=== PATIENT | male | born 1965 | race Caucasian/White ===

== ENCOUNTER 2024-07-26 12:51 | Outpatient (OUT) | payer BC, SELFPAY ==
--- NOTE | 2024-07-26 12:54 | MR_ITS ---
The [place] [id number] Patient Name: EMILIANA GAVIRIA MRN: [id number] date: 1965 Sex: M Assigned Patient Location: MRI Current Patient Location: MRI Accession/Order Number: [id number] Exam Date: 07/26/2024 15:19 Report Date: 07/26/2024 15:24 At the request of: MICHELLE SORENSON MD Procedure: MR knee LT wo con MR knee LT wo con 07/26/2024 1:44 PM SIGNS AND SYMPTOMS: Internal Derangement Of Knee PROTOCOL: Multiplanar multisequence MR images of the left knee without IV contrast COMPARISON: None. FINDINGS: Fluid: There is a pktml-uv-qtegdaoo joint effusion. There is a Barbosa's cyst posteriorly which measures 3.3 x 2.5 x 1.9 cm in greatest dimension.. Medial compartment: Medial meniscus: There is a complex tear of the medial meniscus involving the posterior horn, body, and anterior horn. The medial meniscus is partly extruded from the joint space. There is no evidence of displaced fragment. Medial collateral ligament: Intact. Medial femoral condyle cartilage: There is full thickness chondromalacia. Osteophytosis. There is accompanying subchondral edema. Medial tibial plateau cartilage: There is full thickness chondromalacia. Osteophytosis. There is accompanying subchondral edema. Lateral compartment: Lateral meniscus: Intact. Lateral collateral ligament: Intact. Lateral femoral condyle cartilage: There is mild partial thickness chondromalacia.. Lateral tibial plateau cartilage: There is mild partial thickness chondromalacia. Posterolateral corner: Popliteus tendon: Intact. Popliteofibular ligament: Intact. Proximal tibiofibular joint: There is subcortical cystic change and mild edema on both sides of the joint space. Anterior compartment: Alignment: Normal. Quadriceps tendon: Intact. Patellar tendon: Intact. Retinaculum: Medial intact. Lateral intact. Patellar cartilage: There is full thickness chondromalacia with subcortical edema greatest along the lateral articular facet.. Osteophytosis. Trochlea: There is partial thickness chondromalacia greatest along the lateral articular facet. . Plica: None. Hoffa fat pad: Normal. Intercondylar compartment: Anterior cruciate ligament: Intact. Posterior cruciate ligament: Intact. Bones (other than subarticular marrow): Normal. Muscles: Normal. Vessels: Normal. Nerves: Normal. MR/MR knee LT wo con IMPRESSION: There is a gkcoi-se-rdkxmrsr joint effusion. There is a Barbosa's cyst posteriorly which measures 3.3 x 2.5 x 1.9 cm in greatest dimension. There is a complex tear of the medial meniscus involving the posterior horn, body, and anterior horn. The medial meniscus is partly extruded from the joint space. There is no evidence of displaced fragment. There is full thickness chondromalacia in the medial weightbearing compartment with subchondral edema. There is full thickness chondromalacia along the lateral articular facet of the patellofemoral joint. Partial thickness chondromalacia is noted in the lateral weightbearing. Impression dictated by: Pollo Franco M.D.07/26/2024 3:24 PM Dictation Location: [place] [address] Electronically authenticated by: [id number] Y Date: 07/26/2024 15:24
== END 2024-07-26 12:52 | disposition home or self-care (01) ==
LOC: MRI 12:51
PROVIDERS: PCP Family Medicine; Visit Provider Family Medicine
DX: M23.92 Unspecified internal derangement of left knee (principal); M25.462 Effusion, left knee; M71.22 Synovial cyst of popliteal space [Baker], left knee; S83.232A Complex tear of medial meniscus, current injury, left knee, initial encounter
CPT/HCPCS: 73721

== ENCOUNTER 2024-08-20 13:23 | Outpatient (OUT) | payer BC, SELFPAY ==
--- NOTE | 2024-08-20 13:24 | XR_ITS ---
The [address] [address] Patient Name: EMILIANA GAVIRIA MRN: [id number] date: 1965 Sex: M Assigned Patient Location: Current Patient Location: Accession/Order Number: [id number] Exam Date: 08/20/2024 14:51 Report Date: 08/20/2024 14:52 At the request of: LORAINE WORKMAN MD Procedure: XR knee LT 4V LEFT KNEE - 4 views CLINICAL HISTORY: Chronic left knee pain. COMPARISON: None FINDINGS: Moderate degenerative changes with medial weightbearing and patellofemoral joint space narrowing. No acute bony process is seen. XR/XR knee LT 4V IMPRESSION: MODERATE DEGENERATIVE CHANGES OF THE LEFT KNEE WITHOUT ACUTE BONY PROCESS. Impression dictated by: Pablo Buenrostro Jr. DAnnieOAnnie08/20/2024 2:52 PM Dictation Location: [place] [address] Electronically authenticated by: [id number] Y Date: 08/20/2024 14:52
== END 2024-08-20 13:24 | disposition home or self-care (01) ==
LOC: EC 13:24
PROVIDERS: PCP Family Medicine; Visit Provider Student in an Organized Health Care Education/Training Program
DX: M17.12 Unilateral primary osteoarthritis, left knee (principal)
CPT/HCPCS: 73564

== ENCOUNTER 2024-12-06 12:44 | Outpatient (OUT) | payer BC, SELFPAY ==
--- OUTSIDE RECORDS SUMMARY | 2015-03-14 09:15 | XMS_ITS | Continuity of Care Document ---
Author [facility] Address [address] [place] [address] [place] [address] Phone Care Team Providers Care Child Support Specialist Name Role Phone Unavailable Unavailable Unavailable Procedures Procedure Date OFFICE/OUTPATIENT VISIT, EST OFFICE/OUTPATIENT VISIT, EST OFFICE/OUTPATIENT VISIT, EST POSTOP FOLLOW-UP VISIT POSTOP FOLLOW-UP VISIT OFFICE/OUTPATIENT VISIT, EST Gastric Bypass LAP GASTRIC BYPASS/DON-EN-Y INITIAL INPATIENT CONSULT SUBSEQUENT HOSPITAL CARE OFFICE/OUTPATIENT VISIT, EST OFFICE/OUTPATIENT VISIT, [facility] Advance Directives Directive Yes / No Effective Date File Name No Information Encounters Encounter Description Practice Location Reason(s) For Visit Diagnoses Date Provider Providers Copied on Encounter OFFICE/OUTPAT IENT VISIT, [facility], [address] [place] [address], [id number], [place] tel:[phone] [facility] No Information No Information OFFICE/OUTPAT IENT VISIT, [facility], [address] [place] [address], [id number], [place] tel:[phone] [facility] No Information No Information OFFICE/OUTPAT IENT VISIT, [facility], [address] [place] [address], [id number], [place] tel:[phone] [facility] No Information No Information [facility], [address] [place] [address] [address], [place], [id number], [place] tel:[phone] [facility] No Information No Information [facility], [address] [place] [address] [address], [place], [id number], [place] tel:[phone] [facility] No Information No Information OFFICE/OUTPAT IENT VISIT, [facility], [address] [place] [address] [address], [place], [id number], [place] tel:[phone] [facility] No Information No Information [facility], [address] [place] [address] [address], [place], [id number], [place] tel:[phone] [facility] IP No Information No Information [facility], [address] [place] [address] [address], [place], [id number], [place] tel:[phone] [facility] IP No Information Juliet Howell. [facility] [address] [facility] [address], [place], [place], [id number], [place]. tel:[phone] Referring Provider: Dante Shea, [address], [place], [address] . tel:[phone] INITIAL INPATIENT CONSULT [facility], [address] [place] [address] [address], [place], [place], [id number], [place] tel:[phone] [facility] IP No Information No Information Referring Provider: Dante Shea, [address], [place], [address] . tel:[phone] OFFICE/OUTPAT IENT VISIT, [facility], [address] [facility] [facility] [address], [place], [place], [id number], [place] tel:[phone] [facility] No Information Juliet Howell. [address], [place], [place], [id number], [place]. tel:[phone] Referring Provider: Dante Shea, [address], [place], [address] . tel:[phone] OFFICE/OUTPAT IENT VISIT, [facility], [address], [place], [place], [id number], [place] tel:[phone] [facility] No Information Juliet Howell. [address] [place] [address] [address], [place], [place], [id number], [place]. tel:[phone] Referring Provider: Dante Shea, [address] [facility] [address], [place], [address] . tel:[phone] Family History Family Member Type Diagnosis Age At Onset No Information Payers Payer name Insurance type Covered republican ID Mahesh harman(eugene JONES [id number] Social History Type Description Quantity Date Captured Comments Sex Male Smoking Status No Information Chief Complaint And Reason For Visit No Information Reason For Referral Reason For Referral No Information History Of Present Illness Encounter Date Complaint History Of Prese nt Illness No Information Functional Status Date Functional Assessmen t No Information Instructions Date Instruction Additional Infor mation No Information Assessments Type Assessment Date No Information Patient Care Teams Name Effective Dates (start - stop) Status Members No Information
--- OUTSIDE RECORDS SUMMARY | 2024-07-12 07:15 | XMS_ITS ---
Author Organization [facility] [place] Address [address] [place] [address] Care Team Providers Care Police Lieutenant Precinct Name Role Phone Fanny Shaun Primary Care Provider Allergies No Known Allergies REASON FOR VISIT Left knee pain continued- finish steroids- now feels weak like wants to buckle Medications Medication SIG (Take, Route, Fr equency, Duration) Notes Start Date End Date Status Lisinopril 40 MG 1 tablet Orally Once a day for 30 days 12/01/2022 Active Social History Tobacco Use: Social History Observation Description Date Details (start date - stop date) Never Smoker NA - NA Tobacco Use/Smoking Question Answer Notes Patient is a nonsmoker Problems Problem Type SNOMED Code ICD Code Onset Dates Problem Status W/U Status Risk Notes Problem Internal derangement of knee (25603342) Internal derangement of knee (M23.90) Active confirmed Vital Signs Blood pressure systolic 158 mm Hg 07/12/19 25 Blood pressure diastolic 82 mm Hg 025 Height 72 in 07/12/2024 Weight 276.2 lbs 07/12/2024 BMI 37.46 kg/m2 07/12/2024 Encounters Encounter Location Date Provider Diagnosis [facility] [address] [place] [address] 07/12/2024 Shaun Fanny Internal derangement of knee M23.90 Assessments Encounter Date Diagnosis (ICD Code) Assessment Notes Treatment Notes Treatment Clinical Notes Section Notes 07/12/2024 Internal derangement of knee (ICD-10 - M23.90) did steroid with out help iunable to do nsaids due to gasric bypass, wearing knee sleep - icing 2-3 times a dya - geting worse in last 3-4 month despite treatment - needs MRI Plan Of Treatment Treatment Notes Assessment Notes Internal derangement of knee did steroid with out help iunable to do nsaids due to gasric bypass, wearing knee sleep - icing 2-3 times a dya - geting worse in last 3-4 month despite treatment - needs MRI Pending Test Test Name Order Date MRI KNEE LT WO CON 07/12/2024 Next Appt Details Provider Name:Shaun Escobedo, 09:15:00 AM, [address] [facility], [place], [address], Progress Notes * Cornel GAVIRIADOB:1965 (59 yo M)Acc No.[id number]:07/12/2024 Progress Note Patient: Cornel DURHAM Provider: Teto Escobedo ([facility]), :1965 A ge:59 Y S ex:Male Date:07/12/2024 Address:[address] [place], [place] [id number] Check In:11:04 AM ESTCheck O ut:11:42 AM EST Subjective: * Chief Complaints: * L eft knee pain continued- finish steroids- now feels weak like wants to buckle * HPI: G eneral: feel like knee is ging out - and locking at times - elijah with more activityu unable to do nsaids ude to gastric bypass. * Active Problem List I10 Hypertension Modified On:01/26/2023/U Status:confirmed K21.9 GERD (gastroesophage al reflux disease) Modified On:01/26/2023/U Status:confirmed S83.90XA Knee sprain Modified On:06/28/2024/U Status:confirmed M23.90 Internal derangement of knee Modified On:07/12/2024U Status:confirmed * Medical History: * Surgical History: G astric Bypass Colorectal Screening 11/25/[place]21[place] [facility]- Left * Hospitalization/Major Diagno stic Procedure: D enies Past Hospitalization * Family History: F ather: 64 yrs, cancer, diagnosed with Other malignant neoplasm of unspecified site.?Mother: 62 yrs, type II diabetes, Heart Disease, diagnosed with Diabetes mellitus without mention of complication, type II or unspecified type, not stated as uncontrolled, Unspecified heart disease. B rother(s): alive. S ister(s): alive, cancer, diagnosed with Other malignant neoplasm of unspecified site. S on(s): alive, acute myocardial infarction, Heart Disease, diagnosed with Unspecified heart disease. 2 brother(s) , 2 sister(s) . . Sisters: 1 Living, 1 Brothers: 1 Living, 1 . * Social History: T obacco Use: T obacco Use/Smoking P atient is a n onsmoker * Medications: T akingLisinopril 40 MG Tablet 1 tablet Orally Once a day Taking Lisinopril 40 MG Tablet 1 tablet Orally Once a day DiscontinuedpredniSONE 20 MG Tablet 3 tablets Orally Once a day Medication List reviewed and reconciled with the patientDiscontinued predniSONE 20 MG Tablet 3 tablets Orally Once a day Medication List reviewed and reconciled with the patient * Allergies: N .K.D.A.no[Allergies Verified] Objective: * Vitals: W t:276.2lbs, Ht: 72 in, BP:158/82mm Hg, BMI:37.46Index, Ht-cm: 182.88 cm, Wt-k.28 kg. * Physical Examination: L eft knee woiht medsil joint line tendrenas adn +Shana iwth pain in medial area. Assessment: * Assessment: 1. I nternal derangement of knee - M23.90 (Primary) Plan: * Treatment: * Procedure Codes: * Preventive Medicine: Screenings/Counseling: B [place] ACTION PLAN Above Normal BMI Follow-up D ietary management education, guidance, and counseling * * Sign off status: Completed Visit Status: C HK (Check Out) true * Provider: Teto Escobedo ([facility])MD Date: 0 07/12/2024 Generated for Dari raphael/Jessa/eTransmitting on: 0 12/06/2024 12:48 PM EDT History and Physical Notes * HPI (History of Present Illness) Category Sub-Category Detail Notes Category Not es General feel like knee is ging out - and locking at times - elijah with more activityu unable to do nsaids ude to gastric bypass Physical Examination Category Sub-Category Detail Notes Section Note s Left knee woiht medsil joint line tendrenas adn +Shana iwth pain in medial area
--- OUTSIDE RECORDS SUMMARY | 2024-07-26 16:12 | XMS_ITS ---
Author Organization [facility] [facility] [place] Address [address] [place] [address] Care Team Providers Care Rn Family Name Role Phone Shaun Escobedo Primary Care Provider Reason For Referral Diagnosis 1 Meniscal injury, lef t, initial encounter (S83.92XA) Referral Organization [facility] Referring Provider First Name Shaun Referring Provider Last Name Fanny Referring Provider [facility] [employer] Referred Provider Alok Saunders Referred Provider Specialty Orthopedic S urgery Referral Priority Routine REASON FOR VISIT mri knee Encounters Encounter Location Date Provider Diagnosis [facility] [address] [place] [address] 07/26/2024 Shaun Escobedo Meniscal injury, lef t, initial encounter S83.92XA Assessments Encounter Date Diagnosis (ICD Code) Assessment Notes Treatment Notes Treatment Clinical Notes Section Notes 07/26/2024 Meniscal injury, left, initial encounter (ICD-10 - S83.92XA) Plan Of Treatment Referrals Referral Date Details 07/27/2024 07/27/2024, Alok dwyer Next Appt Details Provider Name:Shaun Escobedo, 09:15:00 AM, [address] [place], [address], Progress Notes * KHADRACornel DALTONDOB:1965 (59 yo M)Acc No.[id number]:07/26/2024 Patient: Cornel DURHAM :1965 A ge:59 Y S ex:Male Address:[address], [address] Subjective: * Chief Complaints: * M ri knee * Medical History: * Surgical History: * Hospitalization/Major Diagno stic Procedure: * Medications: Objective: * Vitals: * Physical Examination: Assessment: * Assessment: 1. M eniscal injury, left, initial encounter - S83.92XA (Primary) Plan: * Treatment: * Procedure Codes: * true * Date: Generated for Dorota lim/Jessa/eTransmitting on: 0 12/06/2024 12:48 PM EDT Consultation Request Notes Referral Date Referring Provider Referred Provider Not es 07/27/2024 Shaun Escobedo Steven
--- OUTSIDE RECORDS SUMMARY | 2024-10-08 09:30 | XMS_ITS ---
Author Organization [facility] Address [address] [place] [address] Care Team Providers Care Excavating Supervisor Name Role Phone Gabriele Escobedo Primary Care Provider Alok Kuo Unavailable [phone] Ayna Duffy Unavailable [phone] REASON FOR VISIT LEFT KNEE RECHECK - Encounters Encounter Location Date Provider Diagnosis [facility] [address] [place] [address] [place] [address] 10/08/2024 Ayan Duffy Plan Of Treatment Next Appt Details Provider Name:Ayan marcial, 12/18/2024 09:20:00 AM, [address] [place] [address], [phone], Provider Name:Ayan marcial, 12/27/2024 07:30:00 AM, [address] [place] [address], [phone], Provider Name:Ayan marcial, 01/08/2025 10:50:00 AM, [address] [place] [address], [phone], Progress Notes * EMILIANA GAVIRIADOB:1965 (59 yo M)Acc No.[id number]:10/08/2024 Patient: EMILIANA DURHAM Provider: Teto Duffy DO :1965 A ge:59 Y S ex:Male Date:10/08/2024 Address:[address] [place] [id number] Pcp:Gabriele Escobedo Subjective: * Chief Complaints: * 1 . LEFT KNEE RECHECK -. * Medical History: Objective: * Vitals: Assessment: Plan: * Treatment: Forms: * Images: * Electronic signature of Jojo Duffy , on 12/06/2024 at 12:48 PM EDT Sign off status: Pending * Provider: Teto Duffy DO Date: 0 10/08/2024 Generated for Dorota lim/Jessa/Kazitting on: 0 12/06/2024 12:48 PM EDT
--- OUTSIDE RECORDS SUMMARY | 2024-11-07 10:03 | XMS_ITS ---
Author Organization [facility] [place] Address [address] [place] [address] Care Team Providers Care Fraternity Adviser Name Role Phone Shaun Escobedo Primary Care Provider [phone] REASON FOR VISIT ortho surgery Encounters Encounter Location Date Provider Diagnosis [facility] [address] [place] [address] 11/07/2024 Shaun Escobedo Plan Of Treatment Next Appt Details Provider Name:Shaun Escobedo, 09:15:00 AM, [address] [place], [address], Progress Notes * KHADRACornel CHENEYDOB:1965 (59 yo M)Acc No.[id number]:11/07/2024 Patient: Cornel DURHAM :1965 A ge:59 Y S ex:Male Address:[address] [place] [address], [address] * true * Date: Generated for Dorota lim/Jessa/eTransmitting on: 0 12/06/2024 12:48 PM EDT
--- OUTSIDE RECORDS SUMMARY | 2024-12-06 12:48 | XMS_ITS | Patient Health Record ---
Author Organization [facility] [place] Address [address] [place] [address] Care Team Providers Care Plating Technician Name Role Phone Shaun Sorenson Primary Care Provider [phone] Allergies No Known Allergies Results Component Value Reference Range Notes XR knee LT 4V Reviewed date:08/20/2024 09:15:17 PM Interpretation: Performing Lab: Notes/Report: Source Facility: [place] [address] XRay Report Signed Patient: EMILIANA HANCOCK MR#: [id number] : 1965 Acct:[id number] Age/Sex: 59 / M ADM Date: 08/20/24 Loc: EC Attending Dr: Ayan Duffy M.D. Ordering Physician: Ayan Duffy M.D. Date of Service: 08/20/24 Procedure(s): XR knee LT 4V Accession Number(s): [id number] cc: Michelle Sorenson M.D.; Ayan Duffy M.D. [place] [address] Patient Name: EMILIANA HANCOCK MRN: [id number] date: 1965 Sex: M Assigned Patient Location: EC Current Patient Location: Accession/Order Number: [id number] Exam Date: 08/20/2024 14:51 Report Date: 08/20/2024 14:52 At the request of: AYAN DUFFY MD Procedure: XR knee LT 4V LEFT KNEE - 4 views CLINICAL HISTORY: Chronic left knee pain. COMPARISON: None FINDINGS: Moderate degenerative changes with medial weightbearing and patellofemoral joint space narrowing. No acute bony process is seen. XR/XR knee LT 4V IMPRESSION: MODERATE DEGENERATIVE CHANGES OF THE LEFT KNEE WITHOUT ACUTE BONY PROCESS. Impression dictated by: Pablo Buenrostro Jr., D.O.08/20/2024 2:52 PM Dictation Location: [place] [address] Electronically authenticated by: [id number] Y Date: 08/20/2024 14:52 Dictated By: Pablo Buenrostro M.D. Signed By: 08/20/24 1454 DD/ 1452 TD/TT: [employer] Piano: [place] [address] XRay Report Signed Patient: ARVIN HANCOCK MR#: [id number] : 1965 Acct:[id number] Age/Sex: 59 / M ADM Date: 08/20/24 Loc: EC Attending Dr: Ayan Duffy M.D. Ordering Physician: Ayan Duffy M.D. Date of Service: 08/20/24 Procedure(s): XR knee LT 4V Accession Number(s): [id number] cc: Michelle Sorenson M.D. ; Ayan Duffy M.D. [place] [address] Patient Name: EMILIANA HANCOCK MRN: [id number] date: 1965 Sex: M Assigned Patient Location: Current Patient Location: Accession/Order Numb er: [id number] Exam Date: 08/20/2024 14:51 Report Date: 08/20/2024 14:52 At the request of: AYAN DUFFY MD Procedure: XR knee LT 4V LEFT KNEE - 4 views CLINICAL HISTORY: Ch ronic left knee pain. COMPARISON: None FINDINGS: Moderate degenerativ e changes with medial weightbearing and patellofemoral joint space narrowin g. No acute bony process is seen. X R/XR knee LT 4V IMPRESSION: MODERATE DEGENERATIV E CHANGES OF THE LEFT KNEE WITHOUT ACUTE BONY PROCESS. Impression dictated by: Pablo Buenrostro Jr., D.O.08/20/2024 2:52 PM Dictation Location: [place] [address] Electronically authe nticated by: [id number] Y Date: 08/20/2024 14:52 Dictated By: Pablo Ziegler i, M.D. Signed By: 08/20/24 1454 DD/ 145 TD/TT: [employer]: MR knee LT wo con Reviewed date:07/26/2024 08:13:00 PM Interpretation: Performing Lab: Notes/Report: Source Facility: [place] [address] Magnetic Resonance Report Signed Patient: EMILIANA HANCOCK MR#: [id number] : 1965 Acct:[id number] Age/Sex: 59 / M ADM Date: 07/26/24 Loc: MRI Attending Dr: Michelle Sorenson M.D. Ordering Physician: Michelle Sorenson M.D. Date of Service: 07/26/24 Procedure(s): MR knee LT wo con Accession Number(s): [id number] cc: Michelle Sorenson M.D. [place] [address] Patient Name: EMILIANA HANCOCK MRN: [id number] date: 1965 Sex: M Assigned Patient Location: MRI Current Patient Location: MRI Accession/Order Number: [id number] Exam Date: 07/26/2024 15:19 Report Date: 07/26/2024 15:24 At the request of: MICHELLE SORENSON MD Procedure: MR knee LT wo con MR knee LT wo con 07/26/2024 1:44 PM SIGNS AND SYMPTOMS: Internal Derangement Of Knee PROTOCOL: Multiplanar multisequence MR images of the left knee without IV contrast COMPARISON: None. FINDINGS: Fluid: There is a fddgl-cr-crtgkaec joint effusion. There is a Barbosa's cyst posteriorly which measures 3.3 x 2.5 x 1.9 cm in greatest dimension.. Medial compartment: Medial meniscus: There is a complex tear of the medial meniscus involving the posterior horn, body, and anterior horn. The medial meniscus is partly extruded from the joint space. There is no evidence of displaced fragment. Medial collateral ligament: Intact. Medial femoral condyle cartilage: There is full thickness chondromalacia. Osteophytosis. There is accompanying subchondral edema. Medial tibial plateau cartilage: There is full thickness chondromalacia. Osteophytosis. There is accompanying subchondral edema. Lateral compartment: Lateral meniscus: Intact. Lateral collateral ligament: Intact. Lateral femoral condyle cartilage: There is mild partial thickness chondromalacia.. Lateral tibial plateau cartilage: There is mild partial thickness chondromalacia. Posterolateral corner: Popliteus tendon: Intact. Popliteofibular ligament: Intact. Proximal tibiofibular joint: There is subcortical cystic change and mild edema on both sides of the joint space. Anterior compartment: Alignment: Normal. Quadriceps tendon: Intact. Patellar tendon: Intact. Retinaculum: Medial intact. Lateral intact. Patellar cartilage: There is full thickness chondromalacia with subcortical edema greatest along the lateral articular facet.. Osteophytosis. Trochlea: There is partial thickness chondromalacia greatest along the lateral articular facet. . Plica: None. Hoffa fat pad: Normal. Intercondylar compartment: Anterior cruciate ligament: Intact. Posterior cruciate ligament: Intact. Bones (other than subarticular marrow): Normal. Muscles: Normal. Vessels: Normal. Nerves: Normal. MR/MR knee LT wo con IMPRESSION: There is a eurbq-yi-xtoyhgcf joint effusion. There is a Barbosa's cyst posteriorly which measures 3.3 x 2.5 x 1.9 cm in greatest dimension. There is a complex tear of the medial meniscus involving the posterior horn, body, and anterior horn. The medial meniscus is partly extruded from the joint space. There is no evidence of displaced fragment. There is full thickness chondromalacia in the medial weightbearing compartment with subchondral edema. There is full thickness chondromalacia along the lateral articular facet of the patellofemoral joint. Partial thickness chondromalacia is noted in the lateral weightbearing. Impression dictated by: Pollo Franco M.D.07/26/2024 3:24 PM Dictation Location: [place] [address] Electronically authenticated by: [id number] Y Date: 07/26/2024 15:24 Dictated By: Pollo Franco M.D. Signed By: 07/26/24 1527 DD/ 1524 TD/TT: [employer]: The [address] [address] Magnetic Resonance Report Signed Patient: ARVIN HANCOCK MR#: [id number] : 1965 Acct:[id number] Age/Sex: 59 / M ADM Date: 07/26/24 Loc: MRI Attending Dr: Michelle Sorenson M.D. Ordering Physician: Michelle Sorenson M.D. Date of Service: 07/26/24 Procedure(s): MR knee LT wo con Accession Number(s): [id number] cc: Michelle Sorenson M.D. [place] [address] Patient Name: EMILIANA HANCOCK MRN: [id number] date: 1965 Sex: M Assigned Patient Location: MRI Current Patient Location: MRI Accession/Order Numb er: [id number] Exam Date: 07/26/2024 15:19 Report Date: 07/26/2024 15:24 At the request of: MICHELLE SORENSON MD Procedure: MR knee LT wo con MR knee LT wo con 1:44 PM SIGNS AND SYMPTOMS: Internal Derangement Of Knee PROTOCOL: Multiplana r multisequence MR images of the left knee without IV contrast COMPARISON: None. FINDINGS: Fluid: There is a juppo-lz-ikmnjeci joint effusion. There is a Barbosa's cyst posteriorly which me asures 3.3 x 2.5 x 1.9 cm in greatest dimension.. Medial compartment: Medial meniscus: The re is a complex tear of the medial meniscus involving the posterior horn, body , and anterior horn. The medial meniscus is partly extruded from the elizabeth int space. There is no evidence of displaced fragment. Medial collateral li gament: Intact. Medial femoral condy le cartilage: There is full thickness chondromalacia. Osteophytosis. There is accompanying subchondral edema. Medial tibial platea u cartilage: There is full thickness chondromalacia. Osteophytosis. There is accompanying subchondral edema. Lateral compartment: Lateral meniscus: Intact. Lateral collateral l igament: Intact. Lateral femoral cond yle cartilage: There is mild partial thickness chondromalacia.. Lateral tibial plate au cartilage: There is mild partial thickness chondromalacia. Posterolateral corner: Popliteus tendon: Intact. Popliteofibular liga ment: Intact. Proximal tibiofibula r joint: There is subcortical cystic change and mild edema on both sides of the joint space. Anterior compartment: Alignment: Normal. Quadriceps tendon: Intact. Patellar tendon: Intact. Retinaculum: Medial intact. Lateral intact. Patellar cartilage: There is full thickness chondromalacia with subcortical edema greatest along the lateral articular facet.. Osteophytosis. Trochlea: There is p artial thickness chondromalacia greatest along the lateral articular facet. . P lica: None. Hoffa fat pad: Normal. Intercondylar compartment: Anterior cruciate li gament: Intact. Posterior cruciate l igament: Intact. Bones (other than escalante barticular marrow): Normal. Muscles: Normal. Vessels: Normal. Nerves: Normal. M R/MR knee LT wo con IMPRESSION: There is a small-to- moderate joint effusion. There is a Barbosa's cyst posteriorly which me asures 3.3 x 2.5 x 1.9 cm in greatest dimension. There is a complex t ear of the medial meniscus involving the posterior horn, body, and anterior h orn. The medial meniscus is partly extruded from the joint space. There i s no evidence of displaced fragment. There is full thickn ess chondromalacia in the medial weightbearing compartment with subchondral edema. There is full thickn ess chondromalacia along the lateral articular facet of the patellofemoral joint. Partial thickness ch ondromalacia is noted in the lateral weightbearing. Impression dictated by: Pollo Franco M.D.07/26/2024 3:24 PM Dictation Location: [place] [address] Electronically authe nticated by: [id number] Y Date: 07/26/2024 15:24 Dictated By: Pollo Franco M.D. Signed By: 07/26/24 1527 DD/ 1524 TD/TT: [employer]: Reason For Referral Diagnosis 1 Meniscal injury, lef t, initial encounter (S83.92XA) Referral Organization [facility] Referring Provider First Name Shaun Referring Provider Last Name Saranidania [facility] [place] [facility] Referred Provider Alok Saunders Referred Provider Specialty Orthopedic S urgery Referral Priority Routine Medications Medication SIG (Take, Route, Fr equency, Duration) Notes Start Date End Date Status Lisinopril 40 MG 1 tablet Orally Once a day for 30 days 12/01/2022 Active Social History Tobacco Use: Social History Observation Description Date Details (start date - stop date) Never Smoker NA - NA Tobacco Use/Smoking Question Answer Notes Patient is a nonsmoker Alcohol Screen (Audit-C) Question Answer Notes Did you have a drink containing alcohol in the p ast year? No Points 0 Interpretation Negative Problems Problem Type SNOMED Code ICD Code Onset Dates Problem Status W/U Status Risk Notes Problem Hypertension (08622608) Hypertension (I10) Active confirmed Problem Gastroesophageal reflux disease (698125469) GERD (gastroesophage al reflux disease) (K21.9) Active confirmed Problem Knee sprain (S83.90XA) Active confirmed Problem Internal derangement of knee (34916901) Internal derangement of knee (M23.90) Active confirmed Vital Signs Blood pressure diastolic 82 mm Hg 07/12/2024 Height 72 in 07/12/2024 Blood pressure systolic 158 mm Hg 07/12/2024 Weight 276.2 lbs 07/12/2024 BMI 37.46 kg/m2 07/12/2024 Encounters Encounter Location Date Provider Diagnosis [facility] [address] [place] [address] 02/20/2024 Shaun Sorenson [facility] [address] [place] [address] 07/26/2024 Shaun Sorenson Meniscal injury, lef t, initial encounter S83.92XA [facility] [address] [place] [address] 11/07/2024 Shaun Sorenson [facility] [address] [place] [address] 06/28/2024 Shaun Sorenson Knee sprain S83.90XA [facility] [address] [place] [address] 07/12/2024 Shaun Sorenson Internal derangement of knee M23.90 Assessments Encounter Date Diagnosis (ICD Code) Assessment Notes Treatment Notes Treatment Clinical Notes Section Notes 06/28/2024 Knee sprain (ICD-10 - S83.90XA) 07/12/2024 Internal derangement of knee (ICD-10 - M23.90) did steroid with out help iunable to do nsaids due to gasric bypass, wearing knee sleep - icing 2-3 times a dya - geting worse in last 3-4 month despite treatment - needs MRI 07/26/2024 Meniscal injury, left, initial encounter (ICD-10 - S83.92XA) Plan Of Treatment Pending Test Test Name Order Date CMP (COMPLETE METABOLIC PANEL) 3 HEMOGLOBIN A1C (GLYCO) 02/18/2023 IRON, TOTAL 02/18/2023 LIPID PANEL (CHOL/TRIG/HDL/LDL) 02/19/20 23 CBC WITH DIFF 02/18/2023 VITAMIN D, 25 LEVEL (TOTAL) 02/18/2023 MRI KNEE LT WO CON 07/12/2024 THYROID PANEL (T4/TSH/FREE T3) 3 Next Appt Details Provider Name:Shaun Nielson Fanny, 09:15:00 AM, [address] [place], [address], Insurance Providers Payer Name Payer Address Payer Phone Subscriber Number Group Number Insured Name Patient Relationship to Insured Coverage Start Date Coverage End Date [employer] PPO PLUS LOCAL PLAN [address] [place] [address] [phone] [id number] Emiliana Hancock Self - patient is the insured Medical (General) History Medical History History ICD Code Hypertension I10 GERD (gastroesophageal reflux disease) K 21.9 Eczema L30.9 COVID-19 U07.1 Rotator Cuff Tear Surgical History Surgery Date(Month/Year) Gastric Bypass Shoulder Surgery- Left Colorectal Screening 11/25/2021
--- OUTSIDE RECORDS SUMMARY | 2024-12-06 12:48 | XMS_ITS | Patient Health Record ---
Author Organization [facility] Address [address] [place] [address] Care Team Providers Care Compliance Attorney Name Role Phone Michelle Sorenson Primary Care Provider Alok Kuo Unavailable [phone] Ayan Duffy Unavailable [phone] Allergies No Known Allergies Results Component Value Reference Range Notes MRI Knee Surg.Navigate or Pl an ONLY Left (Not yet reviewed by provider) Interpretation: Performing Lab: Notes/Report: Patient Name: Emiliana Hancock MRI OF THE LEFT KNEE WITHOUT IV CONTRAST XR Knee Standing AP Bilatera l (Not yet reviewed by provider) Interpretation: Performing Lab: Notes/Report: Patient Name: Emiliana Hancock EXAM: XR Knee Standing AP Bilateral Surgery Scheduling (Not yet reviewed by provider) Interpretation: Performing Lab: Notes/Report: Social Sec number: [id number] Primary Insurance Company: [employer] Surgeon/Assist: JACINTA/ENID VARGAS Surgery Location: [facility] Surgery Date & Time: 12/27/2024 @ 7:30 Hosp arrival time day of: 6:00 AM Surgery End Time: 10:30 Procedure: LEFT TOTAL KNEE ARTHROPLASTY Special Equipment: [employer] C-Arm: YES Diagnosis: OSTEOARTHRITIS OF LEFT KNEE Admission Type: OP Anesthesia Type/CPNB: GENERAL Bed 23 HR OBS Post-op Appointment Date: 01/08/2025 @ 10:50 Latex Allergy NO Lab Location: [facility] [employer] Cook: AUBRIE Garcia Physician: MICHELLE SORENSON History & Physical Appointme nt Date/: 12/18/2024 Pre-op labs/Chest Order: CBC WI/CMP/MRSA /UA WI R C&S,EKG,CXR Had or have MRSA/Direct contact w MRSA pt/HCW NO Reason For Referral Reason APPROVED - PLEASE HI ECERT MRI LEFT KNEE CARO AND NEPHEW PROTOCOL FOR SURGICAL PLANNING AT [facility] Diagnosis 1 Primary osteoarthrit is of left knee (M17.12) Diagnosis 2 Left knee pain (M25. 562) Referral Organization [facility] Referring Provider First Name Ayan Referring Provider Last Name Jacinta Referring Provider Speciality Orthopedic Surgery Referred Organization [facility] Radiology Dept . Referred Provider Ayan Duffy Referred Address [address] [place], [place],[address], Referred Provider Specialty Orthopedic S urgery Procedure 1 MRI Joint Lower Ext w/o Dye (02030) General Notes Aubrie Morton 2024 01:00:27 PM >, Liliam Mack 11/08/2024 10:30:28 AM > AUTH IS APPROVED PER [employer]. APPROVED DATES ARE FROM 11/08/2024-12/07/2024. AUTH #[id number]. AUTH IN CHART. PER [employer] PRATT IS ACTIVE OF 05/30/2018. FAXED TO [facility].Janneth Elizabeth 11/08/2024 12:02:02 PM > Order faxed to [facility] Cent Sched to call patient to schedule. LB Referral Priority Routine Reason PLEASE PRECERT LEFT TOTAL KNEE ARTHROPLOASTY AT [facility] ON 12/27 OUTPATIENT 23 HR OBS Diagnosis 1 Primary osteoarthrit is of left knee (M17.12) Referral Organization [facility] Referring Provider First Name Ayan Referring Provider Last Name Jacinta Referring Provider Speciality Orthopedic Surgery Referred Organization [facility] Referred Provider Ayan Duffy Referred Address [address] [place], [id number] Referred Provider Specialty Orthopedic S urgery General Notes Aubrie Morton 2024 12:16:18 PM > Referral Priority Routine Medications Medication SIG (Take, Route, Fr equency, Duration) Notes Start Date End Date Status lisinopril 40 mg for 30 Days A ctive lisinopril Active Social History Tobacco Use: Social History Observation Description Date Details (start date - stop date) Never Smoker NA - NA AUDIT-C (Standard) Question Answer Notes Did you have a drink containing alcohol in the p ast year? No Points 0 Interpretation Negative Tobacco Control (Standard) Question Answer Notes Tobacco use: Nonsmoker Problems Problem Type SNOMED Code ICD Code Onset Dates Problem Status W/U Status Risk Notes Problem Osteoarthritis of knee (648722863) Primary osteoarthritis of left knee (M17.12) Active confirmed Problem 3620607618190120 History of tota l left knee replacement (Z96.652) Active confirmed Vital Signs Height 6'0 in 08/06/2024 Weight 274 lbs 08/06/2024 BMI 37.16 08/06/2024 Procedures Procedure Date Ordered Date Performed Result Body Sit e EKG 11/07/2024 N/A Encounters Encounter Location Date Provider Diagnosis [facility] [address] [place] [address] [place] [address] 08/06/2024 Alok Saunders Primary osteoarthrit is of left knee M17.12 [facility] [address] [place] [address] [place] [address] 08/20/2024 Ayan Duffy Primary osteoarthrit is of left knee M17.12 [facility] [address] [place] [address] 11/07/2024 Ayannathaly Duffy Primary osteoarthrit is of left knee M17.12 ; 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 ; Encounter for pre-operative laboratory testing Z01.812 ; Encounter for pre-operative respiratory clearance Z01.811 ; Pre-operative cardiovascular examination Z01.810 and History of total left knee replacement Z96.652 Assessments Encounter Date Diagnosis (ICD Code) Assessment Notes Treatment Notes Treatment Clinical Notes Section Notes 08/06/2024 Primary osteoarthritis of left knee (ICD-10 - M17.12) 08/20/2024 Primary osteoarthritis of left knee (ICD-10 - M17.12) Left knee osteoarthritis 11/07/2024 Primary osteoarthritis of left knee (ICD-10 - M17.12) 11/07/2024 Carrier or suspected carrier of Methicillin resistant Staphylococcus aureus (ICD-10 - Z22.322) 11/07/2024 Encounter for pre-operative laboratory testing (ICD-10 - Z01.812) 11/07/2024 Encounter for pre-operative respiratory clearance (ICD-10 - Z01.811) 11/07/2024 Pre-operative cardiovascular examination (ICD-10 - Z01.810) 11/07/2024 History of total left knee replacement (ICD-10 - Z96.652) 08/06/2024 Other For his left knee osteoarthritis he is not a good candidate for arthritis pills. I recommended a steroid injection which she is agreeable to. We have discussed knee replacement surgery. 08/20/2024 Other I discussed today with the patient regarding his left knee osteoarthritis. We did discuss treatment options. At this time he is exhausted conservative management. Do believe total knee arthroplasty would be appropriate considering the magnitude of his arthritis on x-rays and MRI. Has tried injections. They do help but very temporary. Did discuss risk and benefits of total knee arthroplasty. He wishes to proceed forward. Will plan for [employer] total knee arthroplasty. His last injection was July so he will need to be scheduled 3 months from this for surgery. Left knee osteoarthritis Plan Of Treatment Pending Test Test Name Order Date Chest 2 views - 96979 11/07/2024 BMP 11/07/2024 Surgery Scheduling 11/28/2024 MRSA (Bilateral Nares) PCR 11/07/2024 PT - Evaluate and Treat, as directed, 2 - 3 times a week x 4 - 6 weeks 11/07/2024 EKG 11/07/2024 UA with Reflex C & S 11/07/2024 CBC WITH DIFFERENTIAL 11/07/2024 XR Knee Standing AP Bilateral 11/28/2024 SCC- KNEE 4 VIEW LEFT-23653 08/20/2024 MRI Knee Surg.Navigate or Plan ONLY Left 11/28/2024 Hip to ankle Lt -27585 visioneer 025 MRI : Knee, Left. [employer] emily including long leg films 69150 11/07/2024 Next Appt Details Provider Name:Ayan marcial, 12/18/2024 09:20:00 AM, [address] [place] [address], [phone], Provider Name:Ayan marcial, 12/27/2024 07:30:00 AM, [address] [place], [place], [phone], Provider Name:Ayan marcial, 01/08/2025 10:50:00 AM, [address] [place] [address], [phone], Insurance Providers Payer Name Payer Address Payer Phone Subscriber Number Group Number Insured Name Patient Relationship to Insured Coverage Start Date Coverage End Date [employer] EDIL[employer] [address] [place] [address] [id number] EMILIANA HANCOCK Self - patient is the insured Medications Administered Medication Instructions Date of Administration Dosage Notes BUPIVACAINE 08/06/2024 2 mL Depo-Medrol 08/06/2024 1 mL lidocaine 08/06/2024 2 mL Medical (General) History Medical History History ICD Code High Blood Pressure Bariatric Surgery: Surgical History Surgery Date(Month/Year) Left shoulder Gastric bypass
--- OUTSIDE RECORDS SUMMARY | 2024-12-06 12:49 | XMS_ITS | Clinical Summary ---
Author Organization [facility] Address [address] [facility] [place] [address] Care Team Providers Care Knit Goods Washer Name Role Phone Unavailable Primary Care Provider Unavailabl e Encounters Date Type Department Care Team Description 12/04/2024 Telephone [facility] [address] [facility] [address] [place] [address] Catarina Redmond, PT PT PO Eval (PO PT to be started no later than 12/31/24.); fu; PT Eval 12/28 from Last 3 Months Social History Tobacco Use Types Packs/Day Years Used Date Smoking Tobacco: Never Assessed Sex and Gender Information Value Date Recorded Sex Assigned at Not on file Legal Sex Male 6:54 PM EDT Gender Identity Not on file Sexual Orientation Not on file Last Filed Vital Signs Vital Sign Reading Time Taken Comments Blood Pressure 160/90 05/03/2019 12:00 PM EST Pulse - - Temperature - - Respiratory Rate - - Oxygen Saturation - - Inhaled Oxygen Concentration - - Weight 122 kg (270 lb) 09/06/2019 12:00 PM EDT Height 185.4 cm (6' 1 ) 09/06/2019 12:00 PM EDT Body Mass Index 35.62 09/06/2019 12:00 PM EDT Plan of Treatment Upcoming Encounters Date Type Department Care Team (Late st Contact Info) Description 12/28/2024 12:30 PM EDT Evaluation [facility] [address] [facility] [address] [place] [address] Catarina Redmond, PT 12/31/2024 12:00 PM EDT Treatment [facility] [address] [facility] [address] [place] [address] Stephen Rubio, NIP WRAPPER 01/02/2025 12:00 PM EDT Treatment [facility] [address] [place] [address] [place] [address] Stephen Rubio, NIP WRAPPER 01/04/2025 12:00 PM EDT Treatment [facility] [address] [place] [address] [place] [address] Stephen Rubio, NIP WRAPPER 01/07/2025 12:00 PM EDT Treatment [facility] [address] [place] [address] [place] [address] Catarina Redmond, PT 01/09/2025 12:00 PM EDT Treatment [facility] [address] [place] [address] [place] [address] Stephen Rubio, NIP WRAPPER 01/11/2025 12:00 PM EDT Treatment [facility] [address] [place] [address] [place] [address] Stephen Rubio, NIP WRAPPER 01/14/2025 12:00 PM EDT Treatment [facility] [address] [place] [address] [place] [address] Stephen Rubio, NIP WRAPPER 01/16/2025 12:00 PM EDT Treatment [facility] [address] [place] [address] [place] [address] Stephen Rubio, NIP WRAPPER 01/18/2025 12:00 PM EDT Treatment [facility] [address] [place] [address] [place] [address] Stephen Rubio, NIP WRAPPER 01/21/2025 12:00 PM EDT Treatment [facility] [address] [place] [address] [place] [address] Catarina Redmond, PT 01/23/2025 12:00 PM EDT Treatment [facility] [address] [place] [address] [place] [address] Stephen Rubio, NIP WRAPPER 01/25/2025 12:00 PM EDT Treatment [facility] [address] [place] [address] [place] [address] Stephen Rubio PTA Health Maintenance Due Date Last Done Comments CT Colonography 1965 Colonoscopy 1965 Colorectal Cancer Screening 1965 FIT-DNA 1965 FIT 1965 FOBT 1965 Sigmoidoscopy 1965 Influenza Vaccine (#1) 2025 Insurance BS
--- OUTSIDE RECORDS SUMMARY | 2024-12-06 12:49 | XMS_ITS | Encounter Summary ---
Author Organization [facility] Address [address] [place] [address] Care Team Providers Care Electrophysiologist Name Role Phone Unavailable Primary Care Provider Unavailabl e Reason for Visit * Reason Onset Date Comments PT PO Eval 11/28/2024 PO PT to be star riana no later than 12/31/24. fu 12/04/2024 PT Eval 12/2812/06/2024 Encounter Details Date Type Department Care Team (Late st Contact Info) Description 12/04/2024 Telephone [facility] [address] [place] [address] [place] [id number] Catarina Redmond, PT PT PO Eval (PO PT to be started no later than 12/31/24.); fu; PT Eval 12/28 Social History Tobacco Use Types Packs/Day Years Used Date Smoking Tobacco: Never Assessed Sex and Gender Information Value Date Recorded Sex Assigned at Not on file Legal Sex Male 6:54 PM EDT Gender Identity Not on file Sexual Orientation Not on file documented as of this encounter Miscellaneous Notes * Telephone Encounter - Ivet Browne - 12/04/2024 4:09 PM EDT Tried to contact to offer PO PT for L TKA on 12/27; schedule PO no later that 12/31. Aggressive ROM / gentle strengthening. LM requesting a call back at earliest convenience to schedule out. documented in this encounter Plan of Treatment Upcoming Encounters Date Type Department Care Team (Late st Contact Info) Description 12/28/2024 12:30 PM EDT Evaluation [facility] [address] [place] [address] [place] [phone] Catarina Redmond, PT 12/31/2024 12:00 PM EDT Treatment [facility] [address] [place] [address] [place] [address] Stephen Rubio, BARREL DRAINER 01/02/2025 12:00 PM EDT Treatment [facility] [address] [place] [address] [place] [address] Stephen Rubio, BARREL DRAINER 01/04/2025 12:00 PM EDT Treatment [facility] [address] [place] [address] [place] [address] Stephen Rubio, BARREL DRAINER 01/07/2025 12:00 PM EDT Treatment [facility] [address] [place] [address] [place] [address] Catarina Redmond, PT 01/09/2025 12:00 PM EDT Treatment [facility] [address] [place] [address] [place] [address] Stephen Rubio, BARREL DRAINER 01/11/2025 12:00 PM EDT Treatment [facility] [address] [place] [address] [place] [address] Stephen Rubio, BARREL DRAINER 01/14/2025 12:00 PM EDT Treatment [facility] [address] [place] [address] [place] [address] Stephen Rubio, BARREL DRAINER 01/16/2025 12:00 PM EDT Treatment [facility] [address] [place] [address] [place] [address] Stephen Rubio, BARREL DRAINER 01/18/2025 12:00 PM EDT Treatment [facility] [address] [place] [address] [place] [address] Stephen Rubio, BARREL DRAINER 01/21/2025 12:00 PM EDT Treatment [facility] [address] [place] [address] [place] [address] Catarina Redmond, PT 01/23/2025 12:00 PM EDT Treatment [facility] [address] [place] [address] [place] [address] Stephen Rubio, BARREL DRAINER 01/25/2025 12:00 PM EDT Treatment [facility] [address] [facility] [address] [place] [address] Stephen Rubio, BARREL DRAINER documented as of this encounter Visit Diagnoses Not on filedocumented in this encounter
--- NOTE | 2024-12-06 13:00 | ECG_ITS ---
[facility] Test Date: 2024-12-06 Pat Name: EMILIANA GAVIRIA Department: Room: - Gender: Male Manufacturers Agent: : [id number] Requested By: [id number] Order Number: [id number] Reading MD: Measurements Intervals Curran Rate: 60 P: 49 NH: 138 QRS: 57 QRSD: 105 T: 59 QT: 416 QTc: 416 Interpretive Statements SINUS RHYTHM MODERATE ST DEPRESSION [0.05+ mV ST DEPRESSION] No previous ECG available for comparison
== END 2024-12-06 12:45 | disposition home or self-care (01) ==
LOC: CARD 12:47
PROVIDERS: PCP Family Medicine; Visit Provider Student in an Organized Health Care Education/Training Program
DX: Z01.812 Encounter for preprocedural laboratory examination (principal); M17.12 Unilateral primary osteoarthritis, left knee; Z01.811 Encounter for preprocedural respiratory examination; Z01.810 Encounter for preprocedural cardiovascular examination
CPT/HCPCS: 93005

== ENCOUNTER 2024-12-20 08:16 | Outpatient (OUT) | payer BC, SELFPAY ==
--- OUTSIDE RECORDS SUMMARY | 2024-12-07 05:15 | XMS_ITS ---
Author Organization [facility] [place] Address [address] [place] [address] Care Team Providers Care Photographers' Model Name Role Phone FannyShaun Primary Care Provider [phone] Allergies No Known Allergies REASON FOR VISIT Presents to office with for surgery clearance with Dr. Duffy at [facility] on December 27. Having a LTKA Medications Medication SIG (Take, Route, Fr equency, Duration) Notes Start Date End Date Status Lisinopril 40 MG 1 tablet Orally Once a day for 30 days 12/01/2022 Active Social History Tobacco Use: Social History Observation Description Date Details (start date - stop date) Never Smoker NA - NA Tobacco Use/Smoking Question Answer Notes Patient is a nonsmoker AUDIT-C (Standard) Question Answer Notes Did you have a drink containing alcohol in the p ast year? No Points 0 Interpretation Negative Vital Signs Blood pressure systolic 144 mm Hg 12/08/19 25 Blood pressure diastolic 88 mm Hg 025 Height 72 in 12/07/2024 Weight 269.6 lbs 12/07/2024 BMI 36.56 kg/m2 12/07/2024 Encounters Encounter Location Date Provider Diagnosis [facility] [address] [place] [address] 12/07/2024 Shaun Escboedo Hypertension I10 ; Internal derangement of left knee M23.92 and Encounter for pre-operative examination Z01.818 Assessments Encounter Date Diagnosis (ICD Code) Assessment Notes Treatment Notes Treatment Clinical Notes Section Notes 12/07/2024 Hypertension (ICD-10 - I10) BP check in week or so 12/07/2024 Internal derangement of left knee (ICD-10 - M23.92) 12/07/2024 Encounter for pre-operative examination (ICD-10 - Z01.818) 12/07/2024 Other Clerqed for OR -0 folowing up on BP Plan Of Treatment Treatment Notes Assessment Notes Hypertension BP check in week or so Other Clerqed for OR -0 fo lowing up on BP Progress Notes * Cornel HANCOCKDOB:1965 (59 yo M)Acc No.[id number]:12/07/2024 Progress Note Patient: Cornel DURHAM Provider: Teto Escobedo ([facility])MD :1965 A ge:59 Y S ex:Male Date:12/07/2024 Address:[address] [place], [place] [phone] Check In:09:11 AM ESTCheck O ut:10:00 AM EST Subjective: * Chief Complaints: * P resents to office with for surgery clearance with Dr. Duffy at [facility] on December 27. Having a LTKA * HPI: G eneral: Left knee TKA - December 27. * ROS: E ENT: hearing changes d enies. v isual changes d enies.?non-healing mouth sores d enies. s wollen glands or neck lumps d enies. h oarseness d enies. s ore throat d enies. d ifficulty swallowing d enies. n ose bleeds d enies. n chip congestion d enies. e ar ache d enies. e ar discharge?denies. r inging in ears d enies. l ight sensitivity d enies. e ye pain d enies. b lurring d enies. e ye irritation d enies. d ouble vision d enies.?vision loss d enies. G eneral/Constitutional: Sweats: D enies. F atigue d enies. S leep problems d enies. A norexia d enies. M alaise d enies. W eight loss d enies.?Fatigue or Weakness d enies. F ever or Chills d enies. C ardiovascular: Shortness of Breath w/lying flat d enies. L ightheadedness/dizziness d enies. C hest tightness/ heavy pressure d enies. S welling of legs, ankles, or feet d enies. W aking up with shortness of breath d enies. C hest pain denies. P alpitations d enies. W eight gain d enies. R espiratory: Chronic or frequent cough d enies. C oughing up blood?denies. D ifficulty breathing d enies. P roductive cough d enies. S noring?denies. S hortness of breath that awakens from sleep (PND) d enies. C hest pain d enies. S putum production d enies. W heezing d enies. M usculoskeletal: Joint pain d enies. J oint Fluid d enies. B ack pain d enies. K nee pain d enies. N aletha pain d enies. J oint Stiffness d enies. M uscle cramps d enies. W eakness of muscles d enies. A rthritis d enies. M uscle aches d enies. P ain in shoulder(s) d enies. S wollen joints d enies. * Active Problem List I10 Hypertension Modified On:01/26/2023/U Status:confirmed K21.9 GERD (gastroesophage al reflux disease) Modified On:01/26/2023/U Status:confirmed S83.90XA Knee sprain Modified On:06/28/2024/U Status:confirmed M23.90 Internal derangement of knee Modified On:07/12/2024/U Status:confirmed * Medical History: * Surgical History: G astric Bypass Colorectal Screening 11/25/[place] Surgery- Left * Hospitalization/Major Diagno stic Procedure: * Family History: F ather: 64 yrs, cancer, diagnosed with Other malignant neoplasm of unspecified site.?Mother: 62 yrs, type II diabetes, Heart Disease, diagnosed with Diabetes mellitus without mention of complication, type II or unspecified type, not stated as uncontrolled, Unspecified heart disease. B govind(s): alive. S courtney(s): alive, cancer, diagnosed with Other malignant neoplasm of unspecified site. S on(s): alive, acute myocardial infarction, Heart Disease, diagnosed with Unspecified heart disease. 2 brother(s) , 2 sister(s) . . Sisters: 1 Living, 1 Brothers: 1 Living, 1 . * Social History: T obacco Use: T obacco Use/Smoking P atient is a n onsmoker D rug/Alcohol: A SANGITA-C (Standard) D id you have a drink containing alcohol in the past year? N o P oints 0 I nterpretation N egative * Medications: T akingLisinopril 40 MG Tablet 1 tablet Orally Once a day Medication List reviewed and reconciled with the patientTaking Lisinopril 40 MG Tablet 1 tablet Orally Once a day Medication List reviewed and reconciled with the patient * Allergies: N .K.D.A.no[Allergies Verified] Objective: * Vitals: W t:269.6lbs, Ht: 72 in, BP:144/88mm Hg, BMI:36.56Index, Ht-cm: 182.88 cm, Wt-k.29 kg. * Examination: P hysical Exam: GENERAL: w ell developed, well nourished, in no acute distress. HEAD: n ormocephalic/atraumatic. EYES: p upils equal, round and reactive to light, conjunctivae and sclerae normal. EARS: n o deformity or lesion of external ear, canals and TM appear normal bilaterally, TM's intact, not inflamed with normal light reflex, hearing grossly normal to conversational speech. NOSE: n o deformity, discharge, inflammation, or lesions.? MOUTH: m ucous membranes moist, normal oropharynx and posterior pharynx without lesions or exudates, tongue normal, dentition normal. NECK: n aletha supple, no masses or palpable cervical nodes, trachea midline, thyroid without nodules, masses, tenderness, or enlargement. CHEST: n o chest wall deformity, no chest wall tenderness.? LUNGS: n ormal respiratory effort and clear to auscultation, no wheezes, rales, or rhonchi, good air exchange. CARDIO: r egular rate and rhythm, normal S1 and S2, nor murmur, rub, or gallop. PULSES: n ormal capillary refill. ABDOMEN: s oft, non-distended, non-tender, no masses. MUSCULOSKELETAL: n o deformity or scoliosis noted, normal range of motion, joints normal, no erythema, edema, effusion, or ecchymosis. EXTREMITY: n o clubbing, cyanosis, edema, or deformity with normal ROM in both upper and lower bilateral extremities. NEUROLOGIC: g rossly normal. SKIN: n o rashes, ulcerations, or suspicious lesions. LYMPH NODES: n o cervical adenopathy, nodes normal. MENTAL STATUS: a lert and oriented x3, normal mood and affect. Assessment: * Assessment: 1. H ypertension - I10 (Primary) 2 . I nternal derangement of left knee - M23.92 3 . E ncounter for pre-operative examination - Z01.818 Plan: * Treatment: 2. O thers Notes: Clerqed for OR -0 folowing up on BP * Procedure Codes: * Preventive Medicine: Screenings/Counseling: B ME ACTION PLAN Above Normal BMI Follow-up D ietary management education, guidance, and counseling See treatment section of progress note for complete details of management plan. * * Sign off status: Completed Visit Status: C HK (Check Out) true * Provider: Teot Escobedo ([facility])MD Date: 12/07/2024 Generated for Printi ng/Jessa/eTransmitting on: 0 12/20/2024 08:20 AM EDT History and Physical Notes * HPI (History of Present Illness) Category Sub-Category Detail Notes Category Not es General Left knee TKA - December 27 Examination Category Sub-Category Detail Notes Category Not es Physical Exam GENERAL: well developed, well nourished, in no acute distress HEAD: normocephalic/atraum atic EYES: pupils equal, round and reactive to light, conjunctivae and sclerae normal EARS: no deformity or lesi on of external ear, canals and TM appear normal bilaterally, TM's intact, not inflamed with normal light reflex, hearing grossly normal to conversational speech NOSE: no deformity, discha rge, inflammation, or lesions MOUTH: mucous membranes mulu st, normal oropharynx and posterior pharynx without lesions or exudates, tongue normal, dentition normal NECK: neck supple, no mass es or palpable cervical nodes, trachea midline, thyroid without nodules, masses, tenderness, or enlargement CHEST: no chest wall deform ity, no chest wall tenderness LUNGS: normal respiratory e ffort and clear to auscultation, no wheezes, rales, or rhonchi, good air exchange CARDIO: regular rate and rhy thm, normal S1 and S2, nor murmur, rub, or gallop PULSES: normal capillary ref ill ABDOMEN: soft, non-distended, non-tender, no masses RECTAL: MUSCULOSKELETAL: no deformity or scol iosis noted, normal range of motion, joints normal, no erythema, edema, effusion, or ecchymosis EXTREMITY: no clubbing, cyanosi s, edema, or deformity with normal ROM in both upper and lower bilateral extremities NEUROLOGIC: grossly normal SKIN: no rashes, ulceratio ns, or suspicious lesions LYMPH NODES: no cervical adenopat hy, nodes normal MENTAL STATUS: alert and oriented x 3, normal mood and affect
--- OUTSIDE RECORDS SUMMARY | 2024-12-17 06:45 | XMS_ITS ---
Author Organization [facility] [place] Address [address] [place] [address] Care Team Providers Care Merchandising Manager Name Role Phone Shaun Escobedo Primary Care Provider [phone] REASON FOR VISIT BP CHECK Vital Signs Blood pressure systolic 132 mm Hg 12/18/19 25 Blood pressure diastolic 72 mm Hg 025 Height 72 in 12/17/2024 Encounters Encounter Location Date Provider Diagnosis [facility] [address] [place] [address] 12/17/2024 Shaun Saranidania Hypertension I10 Assessments Encounter Date Diagnosis (ICD Code) Assessment Notes Treatment Notes Treatment Clinical Notes Section Notes 12/17/2024 Hypertension (ICD-10 - I10) Plan Of Treatment No Information Progress Notes * Cornel HANCOCKDOB:1965 (59 yo M)Acc No.[id number]:12/17/2024 BP Check Patient: Cornel DURHAM Provider: Teto Escobedo ([facility])MD :1965 A ge:59 Y S ex:Male Date:12/17/2024 Address:[address] [place], [place] [phone] Check In:10:42 AM ESTCheck O ut:10:47 AM EST Subjective: * Chief Complaints: * 1 . BP CHECK. * HPI: G eneral: patient presents to the office for a bp check. * Active Problem List I10 Hypertension Modified On:01/26/2023W/U Status:confirmed K21.9 GERD (gastroesophage al reflux disease) Modified On:01/26/2023W/U Status:confirmed S83.90XA Knee sprain Modified On:06/28/2024W/U Status:confirmed M23.90 Internal derangement of knee Modified On:07/12/2024W/U Status:confirmed * Medical History: Objective: * Vitals: H t: 72 in, BP:132/72mm Hg, Ht-cm: 182.88 cm. Assessment: * Assessment: 1. H ypertension - I10 (Primary) Plan: * Treatment: * * Sign off status: Completed Visit Status: C HK (Check Out) true * Provider: Teto Escobedo ([facility])MD Date: 12/17/2024 Generated for Dorota lim/Jessa/Kazitting on: 12/20/2024 08:20 AM EDT History and Physical Notes * HPI (History of Present Illness) Category Sub-Category Detail Notes Category Not es General patient present s to the office for a bp check
--- OUTSIDE RECORDS SUMMARY | 2024-12-17 06:46 | XMS_ITS ---
Author Organization [facility] [place] Address [address] [place] [address] Care Team Providers Care Doughmaker Name Role Phone Shaun Escobedo Primary Care Provider REASON FOR VISIT bp check Encounters Encounter Location Date Provider Diagnosis [facility] [address] [place] [address] 12/17/2024 Shaun Escobedo Plan Of Treatment No Information Progress Notes * Cornel HANCOCKDOB:1965 (59 yo M)Acc No.[id number]:12/17/2024 Patient: Cornel DURHAM :1965 A ge:59 Y S ex:Male Address:[address] [place] [address], [address] * true * Date: Generated for Printi ng/Faotiliog/eTransmitting on: 0 12/20/2024 08:20 AM EDT
--- OUTSIDE RECORDS SUMMARY | 2024-12-18 05:20 | XMS_ITS ---
Author Organization [facility] Address [address] [place] [address] Care Team Providers Care Document Photographer Name Role Phone Gabriele Escobedo Primary Care Provider Alok Kuo Unavailable [phone] Ayan Duffy Unavailable [phone] REASON FOR VISIT H AND P LEFT TOTAL KNEE AT [facility] 12/27- [facility], Left knee pain Medications Medication SIG (Take, Route, Fr equency, Duration) Notes Start Date End Date Status lisinopril Active lisinopril 40 mg for 30 Days A ctive Encounters Encounter Location Date Provider Diagnosis [facility] [address] [place] [address] 12/18/2024 Ayan Duffy History of total lef t knee replacement Z96.652 ; Primary osteoarthritis of left knee M17.12 and Encounter for pre-operative laboratory testing Z01.812 Assessments Encounter Date Diagnosis (ICD Code) Assessment Notes Treatment Notes Treatment Clinical Notes Section Notes 12/18/2024 History of total left knee replacement (ICD-10 - Z96.652) Left knee osteoarthritis 12/18/2024 Primary osteoarthritis of left knee (ICD-10 - M17.12) Left knee osteoarthritis 12/18/2024 Encounter for pre-operative laboratory testing (ICD-10 - Z01.812) Left knee osteoarthritis 12/18/2024 Other Discussion had today with Emiliana regarding his left knee osteoarthriti s. Does have severe osteoarthriti s. We have discussed treatment options with him including total knee arthroplasty. Has exhausted nonoperative management. Will proceed forward with left total knee arthroplasty. This note will serve as H&P. Left knee osteoarthritis Plan Of Treatment Treatment Notes Assessment Notes Other Discussion had today with Emiliana regarding his left knee osteoarthritis. Does have severe osteoarthritis. We have discussed treatment options with him including total knee arthroplasty. Has exhausted nonoperative management. Will proceed forward with left total knee arthroplasty. This note will serve as H&P. Pending Test Test Name Order Date CMP 12/18/2024 CBC WITH DIFFERENTIAL 12/18/2024 SCC- KNEE 4 VIEW LEFT-[id number] 12/18/2024 ESR, CRP 12/18/2024 Next Appt Details Follow Up: 2 WEEKS POST OP, Reason: Provider Name:Ayan marcial, 12/27/2024 07:30:00 AM, [address] [place] [address], [phone], Provider Name:Ayan marcial, 01/08/2025 10:50:00 AM, [address] [place] [address], [phone], Progress Notes * EMILIANA GAVIRIADOB:1965 (59 yo M)Acc No.[id number]:12/18/2024 Patient: EMILIANA DURHAM Provider: Teto Duffy DO :1965 A ge:59 Y S ex:Male Date:12/18/2024 Address:[address] [place], [place] [id number] Pcp:Gabriele Escobedo Subjective: * Chief Complaints: * 1 . H AND P LEFT TOTAL KNEE AT [facility] 12/27- [facility]. 2. Left knee pain. * HPI: G eneral Follow Up Information: Patient is a 59-year-old male who presents today for follow-up and H&P for his left total knee arthroplasty. He is exhausted conservative treatment for his left knee osteoarthritis. Now presenting for left total knee arthroplasty. He does not have diabetes. He does not smoke. No recent injections. No new falls or injuries or complaints today. * ROS: C onstitutional: Denies C hills. P M and R Intake: Denies F ever. D enies fever, chills, feeling. * Medical History: * Medications: T aking lisinopril , Taking lisinopril 40 mg tablet , Medication List reviewed and reconciled with the patient Objective: * Vitals: * Examination: G eneral examination: L eft lower extremity:Skin is intact. Varus alignment. Range of motion is 0 to about 130 degrees. Knee stable to varus and valgus stress. His motor and sensory exam is intact in all toes. 2+ DP pulse. X -ray Imaging Studies: I reviewed 4 views of the left knee in the office today demonstrate severe end- stage arthritis of the left knee with varus alignment. There is some lateral tilt some subluxation of the patella laterally. Assessment: * Assessment: 1. H istory of total left knee replacement - Z96.652 (Primary) 2 . P rimary osteoarthritis of left knee - M17.12 3 . E ncounter for pre-operative laboratory testing - Z01.812 Left knee osteoarthritis. Plan: * Treatment: 2. P rimary osteoarthritis of left knee L AB: CMP L AB: CBC WITH DIFFERENTIAL L AB: ESR, CRP I maging: SCC- KNEE 4 VIEW LEFT-[id number] 3. E ncounter for pre-operative laboratory testing L AB: CMP L AB: CBC WITH DIFFERENTIAL L AB: ESR, CRP 4. O thers Notes: Discussion had today with Emiliana regarding his left knee osteoarthritis. Does have severe osteoarthritis. We have discussed treatment options with him including total knee arthroplasty. Has exhausted nonoperative management. Will proceed forward with left total knee arthroplasty. This note will serve as H&P. * Procedure Codes: 7 3564 X-ray Knee, complete 4 views * Follow Up: 2 WEEKS POST OP Forms: * Images: * Electronic signature of Jojo Duffy DO on 12/20/2024 at 08:21 AM EDT Sign off status: Pending * Provider: Teto Duffy DO Date: 12/18/2024 Generated for Dorota lim/Jessa/Kazitting on: 12/20/2024 08:21 AM EDT History and Physical Notes * HPI (History of Present Illness) Category Sub-Category Detail Notes Category Not es General Follow Up Information Patient is a 59-year -old male who presents today for follow-up and H&P for his left total knee arthroplasty. He is exhausted conservative treatment for his left knee osteoarthritis. Now presenting for left total knee arthroplasty. He does not have diabetes. He does not smoke. No recent injections. No new falls or injuries or complaints today. Examination Category Sub-Category Detail Notes Category Not es General examination Left low er extremity:Skin is intact. Varus alignment. Range of motion is 0 to about 130 degrees. Knee stable to varus and valgus stress. His motor and sensory exam is intact in all toes. 2+ DP pulse X-ray Imaging Studies I revi ewed 4 views of the left knee in the office today demonstrate severe end-stage arthritis of the left knee with varus alignment. There is some lateral tilt some subluxation of the patella laterally.
--- OUTSIDE RECORDS SUMMARY | 2024-12-20 08:21 | XMS_ITS | Clinical Summary ---
Author Organization [facility] Address [address] [place] [address] Care Team Providers Care Coke Worker Name Role Phone Unavailable Primary Care Provider Unavailabl e Encounters Date Type Department Care Team Description 12/04/2024 Telephone [facility] [address] [facility] [address] [place] [address] Catarina Redmond, PT PT PO [...] EDT Evaluation [facility] [address] [facility] [address] [place] [address] Catarina Redmond, PT 12/31/2024 12:00 PM EDT Treatment [facility] [address] [facility] [address] [place] [address] Stephen Rubio, SCIENCE TECHNICIAN 01/02/2025 12:00 PM EDT Treatment [facility] [address] [place] [address] [place] [address] RamiroRobinStephen, SCIENCE TECHNICIAN 01/04/2025 12:00 PM EDT Treatment [facility] [address] [place] [address] [place] [address] DomenicoshravanSamantha emerson, SCIENCE TECHNICIAN 01/07/2025 12:00 PM EDT Treatment [facility] [address] [place] [address] [place] [address] RamiroRobinStephen, SCIENCE TECHNICIAN 01/09/2025 12:00 PM EDT Treatment [facility] [address] [place] [address] [place] [address] Ramiro Stephen, SCIENCE TECHNICIAN 01/11/2025 12:00 PM EDT Treatment [facility] [address] [place] [address] [place] [address] Ethel Samantha, SCIENCE TECHNICIAN 01/14/2025 12:00 PM EDT Treatment [facility] [address] [place] [address] [place] [address] Catarina Redmond, PT 01/16/2025 12:00 PM EDT Treatment [facility] [address] [place] [address] [place] [address] Layo Graves, SCIENCE TECHNICIAN 01/18/2025 12:30 PM EDT Treatment [facility] [address] [place] [address] [place] [address] Catarina Redmond, PT 01/21/2025 12:00 PM EDT Treatment [facility] [address] [place] [address] [place] [address] Catarina Redmond, PT 01/23/2025 12:00 PM EDT Treatment [facility] [address] [place] [address] [place] [address] Layo Graves, SCIENCE TECHNICIAN 01/25/2025 12:30 PM EDT Treatment [facility] [address] [place] [address] [place] [address] Catarina Redmond, PT Health Maintenance Due Date Last Done Comments CT Colonography 1965 Colonoscopy 1965 Colorectal Cancer Screening 1965 FIT-DNA 1965 FIT 1965 FOBT 1965 Sigmoidoscopy 1965 Influenza Vaccine (#1) 2025 Insurance [facility]
--- OUTSIDE RECORDS SUMMARY | 2024-12-20 08:21 | XMS_ITS | Patient Health Record ---
Author Organization [facility] Address [address] [place] [address] Care Team Providers Care Prescription Clerk Name Role Phone Michelle Sorenson Primary Care Provider Alok Kuo Unavailable [phone] Ayan Duffy Unavailable [phone] Allergies No Known Allergies Results Component Value [...] Interpretation: Performing Lab: Notes/Report: Social Sec number: [id number] Primary Insurance Company: [employer] Surgeon/Assist: JACINTA/ENID VARGAS Surgery Location: [facility] Surgery Date & Time: 12/27/2024 @ 7:30 Hosp arrival time day of: 6:00 AM Surgery End Time: 10:30 Procedure: LEFT TOTAL KNEE ARTHROPLASTY Special Equipment: CARO AND NEPHRollCall (roll.to) [facility] C-Arm: YES Diagnosis: OSTEOARTHRITIS OF LEFT KNEE Admission Type: OP Anesthesia Type/CPNB: GENERAL Bed 23 HR OBS Post-op Appointment Date: 01/08/2025 @ 10:50 Latex Allergy NO Lab Location: [facility] Offbearer Sewer Pipe: AUBRIE Garcia Physician: MICHELLE SORENSON History & Physical Appointme nt Date/: 12/18/2024 Pre-op labs/Chest Order: CBC WI/CMP/MRSA /UA WI R C&S,EKG,CXR Had or have MRSA/Direct contact w MRSA pt/HCW NO Reason For Referral Reason APPROVED - PLEASE VIKASH SYKES MRI LEFT KNEE CARO AND NEPHEW PROTOCOL FOR SURGICAL PLANNING AT [facility] Diagnosis 1 Primary osteoarthrit is of left knee (M17.12) Diagnosis 2 Left knee pain (M25. 562) Referral Organization [facility] Referring Provider First Name Ayan Referring Provider Last Name Jacinta Referring Provider Speciality Orthopedic Surgery Referred Organization [facility] Radiology Dept . Referred Provider Ayan Duffy Referred Address [address] [place], [place],[address], Referred Provider Specialty Orthopedic S urgery Procedure 1 MRI Joint Lower Ext w/o Dye (08024) General Notes Aubrie Morton 2024 01:00:27 PM >, Liliam Mack 11/08/2024 10:30:28 AM > AUTH IS APPROVED PER [employer]. APPROVED DATES ARE FROM 11/08/2024-12/07/2024. AUTH #[id number]. AUTH IN CHART. PER [employer] PRATT IS ACTIVE OF 05/30/2018. FAXED TO [facility].Janneth Elizabeth 11/08/2024 12:02:02 PM > Order faxed to [facility] Cent Sched to call patient to schedule. LB Referral Priority Routine Reason VAHID........PLEASE VIKASH SYKES LEFT TOTAL KNEE ARTHROPLOASTY AT [facility] ON 12/27 OUTPATIENT 23 HR OBS Diagnosis 1 Primary osteoarthrit is of left knee (M17.12) Referral Organization [facility] Referring Provider First Name Ayan Referring Provider Last Name Jacinta Referring Provider Speciality Orthopedic Surgery Referred Organization [facility] ospital-OP Referred Provider Ayan Duffy Referred Address [address] [place], [place],[id number] Referred Provider Specialty Orthopedic S urgery Procedure 1 Arthroplasty Knee To sumeet Med/Lat Compartments (15990) General Notes Aubrie Morton 2024 12:16:18 PM >Evan Amy 12/10/2024 11:57:21 AM >PER SANTA, JONNA AUTH IS REQUIRED COPY IN CHART MA NOTIFIED REF FAXED TO [facility] Referral Priority Routine Medications Medication SIG (Take, Route, Fr equency, Duration) Notes Start Date End Date Status lisinopril Active lisinopril 40 mg for 30 Days A ctive Social History Tobacco Use: Social History Observation [...] Problem Status W/U Status Risk Notes Problem Primary osteoarthritis of left knee (M17.12) Active confirmed Problem [id number] History of tota l left knee replacement (Z96.652) Active confirmed Vital Signs Height 6'0 in 08/06/2024 Weight 274 lbs 08/06/2024 BMI 37.16 08/06/2024 Procedures Procedure Date Ordered Date Performed Result Body Sit e EKG 11/07/2024 N/A Encounters Encounter Location Date Provider Diagnosis [facility] [address] [place] [address] 12/18/2024 Ayan Duffy History of total lef t knee replacement Z96.652 ; Primary osteoarthritis of left knee M17.12 and Encounter for pre-operative laboratory testing Z01.812 [facility] [address] [place] [address] 08/06/2024 Alok Saunders Primary osteoarthrit is of left knee M17.12 [facility] [address] [place] [address] 08/20/2024 Ayan Duffy Primary osteoarthrit is of left knee M17.12 [facility] [place] [address] [place] [place] [address] 11/07/2024 Ayan Duffy Primary osteoarthrit is of left [...] Methicillin resistant Staphylococcus aureus (ICD-10 - Z22.322) 12/18/2024 History of total left knee replacement (ICD-10 - Z96.652) Left knee osteoarthritis 11/07/2024 Encounter for pre-operative laboratory testing (ICD-10 - Z01.812) 12/18/2024 Primary osteoarthritis of left knee (ICD-10 - M17.12) Left knee osteoarthritis 12/18/2024 Encounter for pre-operative laboratory testing (ICD-10 - Z01.812) Left knee osteoarthritis 11/07/2024 Encounter for pre-operative respiratory clearance (ICD-10 - Z01.811) 11/07/2024 Pre-operative cardiovascular examination (ICD-10 - Z01.810) 11/07/2024 History of total left knee replacement (ICD-10 - Z96.652) 12/18/2024 Other Discussion had today with Emiliana regarding his left knee osteoarthritis. Does have severe osteoarthritis. We have discussed treatment options with him including total knee arthroplasty. Has exhausted nonoperative management. Will proceed forward with left total knee arthroplasty. This note will serve as H&P. Left knee osteoarthritis 08/06/2024 Other For his left knee osteoarthritis [...] Name Order Date Chest 2 views - [id number] 11/07/2024 BMP 11/07/2024 CMP 12/18/2024 Surgery Scheduling 11/28/2024 MRSA (Bilateral Nares) PCR 11/07/2024 PT - Evaluate and Treat, as directed, 2 - 3 times a week x 4 - 6 weeks 11/07/2024 EKG 11/07/2024 UA with Reflex C & S 11/07/2024 CBC WITH DIFFERENTIAL 11/07/2024 CBC WITH DIFFERENTIAL 12/18/2024 XR Knee Standing AP Bilateral 11/28/2024 SCC- KNEE 4 VIEW LEFT-49749 12/18/2024 SCC- KNEE 4 VIEW LEFT-23775 08/20/2024 ESR, CRP 12/18/2024 MRI Knee Surg.Navigate or Plan ONLY Left 11/28/2024 Hip to ankle Lt -55463 visioneer 025 MRI : Knee, Left. [employer] Nephew [employer] emily including long leg films [id number] 11/07/2024 Next Appt Details Provider Name:Ayan marcial, 12/27/2024 07:30:00 AM, [address] [place], [place], [phone], Provider Name:Ayan marcial, 01/08/2025 10:50:00 AM, [address] [place] [address], [phone], Insurance Providers Payer Name Payer Address Payer Phone Subscriber Number Group Number Insured Name Patient Relationship to Insured Coverage Start Date Coverage End Date [employer] [address] [place] [address] [id number] EMILIANA HANCOCK Self - patient is the insured Medications Administered Medication Instructions Date of Administration Dosage Notes BUPIVACAINE 08/06/2024 2 mL Depo-Medrol 08/06/2024 1 mL lidocaine 08/06/2024 2 mL Medical (General) History Medical History History ICD Code High Blood Pressure Bariatric Surgery: Surgical History Surgery Date(Month/Year) Left shoulder Gastric bypass
--- OUTSIDE RECORDS SUMMARY | 2024-12-20 08:21 | XMS_ITS | Patient Health Record ---
Author Organization [facility] [place] Address [address] [place] [address] Care Team Providers Care Reptile Keeper Name Role Phone Shaun Sorenson Primary Care Provider Allergies No Known Allergies Results Component Value Reference Range Notes XR knee LT 4V Reviewed date:08/20/2024 09:15:17 PM Interpretation: Performing Lab: Notes/Report: Source Facility: [place] [address] XRay Report Signed Patient: EMILIANA HANCOCK MR#: [id number] : 1965 Acct:[id number] Age/Sex: 59 / M ADM Date: 08/20/24 Loc: EC Attending Dr: Ayan Duffy M.D. Ordering Physician: Ayan Duffy M.D. Date of Service: 08/20/24 Procedure(s): XR knee LT 4V Accession Number(s): [id number] cc: Michelle Sorenson M.D.; Ayan Duffy M.D. [place] [address] Patient Name: EMILIANA HANCOCK MRN: [id number] date: 1965 Sex: M Assigned Patient Location: EC Current Patient Location: Accession/Order Number: [id number] Exam Date: 08/20/2024 14:51 Report Date: 08/20/2024 [...] Buenrostro Jr., D.O.08/20/2024 2:52 PM Dictation Location: [place] [address] Electronically authenticated by: [id number] Y Date: 08/20/2024 14:52 Dictated By: Pablo Buernostro M.D. Signed By: 08/20/24 1454 DD/ 1452 TD/TT: [employer]: [place] [address] XRay Report Signed Patient: ARVIN HANCOCK MR#: [id number] : 1965 Acct:[id number] Age/Sex: 59 / M ADM Date: 08/20/24 Loc: EC Attending Dr: Ayan Duffy M.D. Ordering Physician: Ayan Duffy M.D. Date of Service: 08/20/24 Procedure(s): XR knee LT 4V Accession Number(s): [id number] cc: Michelle Sorenson M.D. ; Ayan Duffy M.D. [place] [address] Patient Name: EMILIANA HANCOCK MRN: [id number] date: 1965 Sex: M Assigned Patient Location: Current Patient Location: Accession/Order Numb er: [id number] Exam Date: 08/20/2024 14:51 Report Date: 08/20/2024 [...] Buenrostro Jr., D.O.08/20/2024 2:52 PM Dictation Location: [place] [address] Electronically authe nticated by: [id number] Y Date: 08/20/2024 14:52 Dictated By: Pablo Buenrostro M.D. Signed By: 08/20/24 1454 DD/ 1452 TD/TT: [employer]: MR knee LT wo con Reviewed date:07/26/2024 08:13:00 PM Interpretation: Performing Lab: Notes/Report: Source Facility: [place] [address] Magnetic Resonance Report Signed Patient: EMILIANA HANCOCK MR#: [id number] : 1965 Acct:[id number] Age/Sex: 59 / M ADM Date: 07/26/24 Loc: MRI Attending Dr: Michelle Sorenson M.D. Ordering Physician: Michelle Sorenson M.D. Date of Service: 07/26/24 Procedure(s): MR knee LT wo con Accession Number(s): [id number] cc: Michelle Sorenson M.D. [place] [address] Patient Name: EMILIANA HANCOCK MRN: [id number] date: 1965 Sex: M Assigned Patient Location: MRI Current Patient Location: MRI Accession/Order Number: [id number] Exam Date: 07/26/2024 15:19 Report Date: 07/26/2024 15:24 At the request of: MICHELLE SORENSON MD Procedure: MR knee LT wo con MR knee LT wo con 07/26/2024 1:44 PM SIGNS AND SYMPTOMS: Internal Derangement Of Knee PROTOCOL: Multiplanar multisequence MR images of the left knee without IV contrast COMPARISON: None. FINDINGS: Fluid: There is a cykhr-oj-wiyqrfpv joint effusion. There is a Barbosa's cyst [...] LT wo con IMPRESSION: There is a utpoi-pg-xxekiebs joint effusion. There is a Barbosa's cyst [...] M.D.07/26/2024 3:24 PM Dictation Location: [place] [address] Electronically authenticated by: [id number] Y Date: 07/26/2024 15:24 Dictated By: Pollo Franco M.D. Signed By: 07/26/24 1527 DD/ 1524 TD/TT: [employer]: The [address] [address] Magnetic Resonance Report Signed Patient: ARVIN HANCOCK MR#: [id number] : 1965 Acct:[id number] Age/Sex: 59 / M ADM Date: 07/26/24 Loc: MRI Attending Dr: Michelle Sorenson M.D. Ordering Physician: Michelle Sorenson M.D. Date of Service: 07/26/24 Procedure(s): MR knee LT wo con Accession Number(s): [id number] cc: Michelle Sorenson M.D. [place] [address] Patient Name: EMILIANA HANCOCK MRN: [id number] date: 1965 Sex: M Assigned Patient Location: MRI Current Patient Location: MRI Accession/Order Numb er: [id number] Exam Date: 07/26/2024 15:19 Report Date: 07/26/2024 15:24 At the request of: MICHELLE SORENSON MD Procedure: MR knee LT wo con MR knee LT wo con 1:44 PM SIGNS AND SYMPTOMS: Internal Derangement Of Knee PROTOCOL: Multiplana r multisequence MR images of the left knee without IV contrast COMPARISON: None. FINDINGS: Fluid: There is a nuvpp-bt-jsxkbeff joint effusion. There is a Barbosa's cyst [...] Popliteus tendon: Intact. Popliteofibular ligament: Intact. Proximal tibiofibula r joint: There is [...] M.D.07/26/2024 3:24 PM Dictation Location: [place] [address] Electronically authe nticated by: [id number] Y Date: 07/26/2024 15:24 Dictated By: Pollo Franco M.D. Signed By: 07/26/24 1527 DD/ 1524 TD/TT: [employer]: ECG 12 lead Reviewed date:12/11/2024 09:07:20 PM Interpretation: Performing Lab: Notes/Report: Source Facility: [place] [address] [place] [address] Electrocardiograph Report Signed Patient: EMILIANA HANCOCK MR#: [id number] : 1965 Acct:[id number] Age/Sex: 59 / M ADM Date: 12/06/24 Loc: CARD Attending Dr: Ayan Duffy M.D. Ordering Physician: Ayan Duffy M.D. 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 Signed By: 12/11/24 1303 12/11/24 1303 DD/ 1102 TD/TT: [employer]: [place] [address] Electrocardiograph Report Signed Patient: ARVIN HANCOCK MR#: [id number] : 1965 Acct:[id number] Age/Sex: 59 / M ADM Date: 12/06/24 Loc: CARD Attending Dr: Ayan Duffy M.D. Ordering Physician: Ayan Duffy M.D. 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 Signed By: 12/11/24 1303 12/11/24 1303 DD/ 1102 TD/TT: [employer]: Reason For Referral Diagnosis 1 Meniscal injury, lef t, initial encounter (S83.92XA) Referral Organization [facility] Referring Provider First Name Shaun Referring Provider Last Name Fanny Referring Provider Speciality [facility] Referred Provider Alok Saunders Referred Provider Specialty [...] ast year? No Points 0 Interpretation Negative AUDIT-C (Standard) Question Answer Notes Did you have a drink containing alcohol in the p ast year? No Points 0 Interpretation Negative Problems Problem Type SNOMED Code ICD Code Onset Dates Problem Status W/U Status Risk Notes Problem Hypertension (31530516) Hypertension (I10) Active confirmed Problem Gastroesophageal reflux disease (530986528) GERD (gastroesophage al reflux disease) (K21.9) Active confirmed Problem Knee sprain (65444708) Knee sprain (S83.90XA) Active confirmed Problem Internal derangement of knee (11145064) Internal derangement of knee (M23.90) Active confirmed Vital Signs Blood pressure diastolic 72 mm Hg 12/17/2024 Height 72 in 12/17/2024 Blood pressure systolic 132 mm Hg 12/17/2024 Weight 269.6 lbs 12/07/2024 BMI 36.56 kg/m2 12/07/2024 Encounters Encounter Location Date Provider Diagnosis [facility] [address] [facility] [place] [address] 02/20/2024 Shaun Hoy [facility] [address] [facility]], [place] [address] 07/26/2024 Shaun Hoy Meniscal injury, lef t, initial encounter S83.92XA [facility] [address] [facility]], [place] [address] 11/07/2024 Shaun Hoy [facility] [address] [facility] [address] 12/17/2024 Shaun Hoy [facility] [address] [facility] [place] [address] 07/12/2024 Shaun Hoy Internal derangement of knee M23.90 [facility] [address] [facility] [place] [address] 12/17/2024 Shaun Hoy Hypertension I10 [facility] [address] [facility]], [place] [address] 06/28/2024 Shaun Hoy Knee sprain S83.90XA [facility] [address] [facility]], [place] [address] 12/07/2024 Shaun Hoy Hypertension I10 ; Internal derangement of left [...] 3-4 month despite treatment - needs MRI 12/07/2024 Hypertension (ICD-10 - I10) BP check in week or so 12/07/2024 Internal derangement of left knee (ICD-10 - M23.92) 12/17/2024 Hypertension (ICD-10 - I10) 07/26/2024 Meniscal injury, left, initial encounter (ICD-10 - S83.92XA) 12/07/2024 Encounter for pre-operative examination (ICD-10 - Z01.818) 12/07/2024 Other Clerqed for OR -0 folowing up on BP Plan Of Treatment Pending Test Test Name Order Date CMP (COMPLETE METABOLIC PANEL) 3 HEMOGLOBIN A1C (GLYCO) 02/18/2023 IRON, TOTAL 02/18/2023 LIPID PANEL (CHOL/TRIG/HDL/LDL) 02/19/20 23 CBC WITH DIFF 02/18/2023 VITAMIN D, 25 LEVEL (TOTAL) 02/18/2023 MRI KNEE LT WO CON 07/12/2024 THYROID PANEL (T4/TSH/FREE T3) 3 Insurance Providers Payer Name Payer Address Payer Phone Subscriber Number Group Number Insured Name Patient Relationship to Insured Coverage Start Date Coverage End Date [employer] ACCESS PPO PLUS LOCAL PLAN [address] [place] [phone] [id number] Emiliana Hancock Self - patient is the insured Medical (General) History Medical History History ICD Code Hypertension I10 GERD (gastroesophageal reflux disease) K 21.9 Eczema L30.9 COVID-19 U07.1 Rotator Cuff Tear Surgical History Surgery Date(Month/Year) Gastric Bypass Colorectal Screening 11/25/2021 Shoulder Surgery- Left
--- OUTSIDE RECORDS SUMMARY | 2024-12-20 08:22 | XMS_ITS | Clinical Summary ---
Author Organization [facility] tem Address [id number] [address] [place] [address] Care Team Providers Care Sap Bpc Developer Name Role Phone Gabriele Escobedo MD Primary Care Provider [phone] Social History Tobacco Use Types Packs/Day Years Used Date Smoking Tobacco: Never Assessed Childcare Answer Date Recorded Childcare Unknown 11/08/2018 Employment Answer Date Recorded Employment Unknown 11/08/2018 Purpose - Life Answer Date Recorded Purpose and direction in life Unknown Sex and Gender Information Value Date Recorded Sex Assigned at Not on file Legal Sex Male 11:33 AM EDT Gender Identity Not on file Sexual Orientation Not on file Plan of Treatment Health Maintenance Due Date Last Done Comments Depression Screening 1975 Tobacco Screening 1975 Adult BMI Screening 1981 DTaP,Tdap and Td Vaccines (1 - Tdap) 1982 Zoster (Shingles) Vaccine (1 of 2) 2013 Influenza Vaccine 01/28/2025 Medical Devices Not on file Insurance [employer] Care Teams Sap Bpc Developer Relationship Specialty Start Date End Date Gabriele Escobedo MD PCP - General Family Medicine 04/11/19
--- OUTSIDE RECORDS SUMMARY | 2024-12-20 08:22 | XMS_ITS | Encounter Summary ---
Author Organization [facility] Address [address] [place] [address] Care Team Providers Care Dental Ceramist Assistant Name Role Phone Unavailable Primary Care Provider Unavailabl e Reason for Visit * Reason Onset Date Comments PT PO Eval 11/28/2024 PO PT to be star riana no later than 12/31/24. fu 12/04/2024 PT Eval 12/2812/06/2024 Encounter Details Date Type Department Care Team (Late st Contact Info) Description 12/04/2024 Telephone [facility] [address] [place] [phone] Catarina Redmond, PT PT PO Eval (PO [...] [facility] PT [address] [place] [address] Catarina Redmond, PT 12/31/2024 12:00 PM EDT Treatment [facility] [address] [place] [address] Stephen Rubio, ART CLASS MODEL 01/02/2025 12:00 PM EDT Treatment [facility] [address] [place] [address] Stephen Rubio, ART CLASS MODEL 01/04/2025 12:00 PM EDT Treatment [facility] [address] [place] [address] Samantha Davenport, ART CLASS MODEL 01/07/2025 12:00 PM EDT Treatment [facility] [address] [place] [address] Stephen Rubio, ART CLASS MODEL 01/09/2025 12:00 PM EDT Treatment [facility] [address] [place] [address] Stephen Rubio, ART CLASS MODEL 01/11/2025 12:00 PM EDT Treatment [facility] [address] [place] [address] Samantha Davenport, ART CLASS MODEL 01/14/2025 12:00 PM EDT Treatment [facility] [address] [place] [address] Catarina Redmond, PT 01/16/2025 12:00 PM EDT Treatment [facility] [address] [place] [address] Layo Graves, ART CLASS MODEL 01/18/2025 12:30 PM EDT Treatment [facility] [address] [place] [address] Catarina Redmond, PT 01/21/2025 12:00 PM EDT Treatment [facility] [address] [place] [address] Catarina Redmond, PT 01/23/2025 12:00 PM EDT Treatment [facility] [address] [place] [address] Layo Graves, ART CLASS MODEL 01/25/2025 12:30 PM EDT Treatment [facility] [address] [facility] [address] [place] [address] Catarina Redmond, PT documented as of this encounter Visit Diagnoses Not on filedocumented in this encounter
--- OUTSIDE RECORDS SUMMARY | 2024-12-20 08:26 | XMS_ITS | CCD ---
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 Name Role Phone Michelle Escobedo Primary Care Physician FANNY, DR MARTINEZ Admitting Unavailable HOY, DR MARTINEZ Attending Unavailable HOY, DR MARTINEZ Consulting Unavailable HOY, DR MARTINEZ Primary Care Unavailable HOY, DR MARTINEZ Admitting Unavailable HOY, DR MARTINEZ Attending Unavailable HOY, DR MARTINEZ Consulting Unavailable HOY, DR MARTINEZ Primary Care Unavailable HOY, DR MARTINEZ Primary Care Unavailable HOY, DR MARTINEZ Admitting Unavailable HOY, DR MARTINEZ Attending Unavailable HOY, DR MARTINEZ Consulting Unavailable HOY, DR MARTINEZ Primary Care Unavailable NILL, DR SAXENA Admitting Unavailable VASQUEZ, RETA Consulting Unavailable NILL, DR SAXENA Attending Unavailable NILL, DR SAXENA Admitting Unavailable HOY, DR MARTINEZ Primary Care Unavailable NILL, DR SAXENA Attending Unavailable NILL, DR SAXENA Consulting Unavailable AGUBOSIM, KIKI Consulting Unavailable LONG, ANGELINA Consulting Unavailable BANDAR, FIONA Consulting Unavailable HOY, DR MARTINEZ Admitting Unavailable HOY, DR MARTINEZ Attending Unavailable HOY, DR MARTINEZ Consulting Unavailable HOY, DR MARTINEZ Primary Care Unavailable Unavailable Primary Care Provider Michelle Lugo MD Primary Care Unavaila Ayan Cervantes DO Attending Michelle Lugo MD Primary Care Unavaila Ayan Cervantes DO Attending UnavailAyan Lowery DO Attending Michelle Lugo MD Primary Care Unavaila ble Allergies Allergy Classification Reported Allergen(s) Allergy Type Date of Onset Reaction(s) Facility (1 source) No Known Medication Allergies; Translations: [No Known Medication Allergies] Propensity to adverse reactions to drug (disorder) [facility] Repository Medications Current Medications Medication Drug Class(es) Dates Sig (Normalized) Sig (Original) lisinopril 40 mg oral tablet (1 source) Angiotensin Converting Enzyme Inhibitor Start: 10-14-2021 take 1 tablet by mouth once daily lisinopril 40 mg Tab 40 mg = 1 tab(s), Oral, Daily, Refills(s) 0 Start Date: 10/14/21 Status: Ordered Problems Active Problems Problem Classification Problem Date Documented Da te Episodic/Chronic Allergic reactions (1 source) Eczema 10-14-2021 Episodic Esophageal disorders (2 sources) Gastroesophageal reflux disease; Translations: [Gastro-esophageal reflux disease without esophagitis] Onset: 2 10-14-2021 Chronic Essential hypertension (2 sources) Hypertensive disorder; Translations: [Essential (primary) hypertension] Onset: 2 10-14-2021 Chronic Noninfectious gastroenteritis (1 source) Noninfective gastroenteritis and colitis, unspecified; Translations: [NONINFECTIVE GE AND COLITIS UNS] Onset: 2 Episodic Other gastrointestinal disorders (1 source) Bariatric surgery status; Translations: [BARIATRIC SURGERY STATUS] Onset: 2 Episodic Other nutritional; endocrine; and metabolic disorders (1 source) Obese class II; Translations: [Body mass index (BMI) 35.0-35.9, adult] Onset: 2 Chronic Other nutritional; endocrine; and metabolic disorders (1 source) Body mass index 30+ - obesity 10-16-2021 Chronic Other screening for suspected conditions (not mental disorders or infectious disease) (7 sources) Screening for malignant neoplasm of colon done; Translations: [Encounter for screening for malignant neoplasm of colon] Onset: 2 Episodic Unclassified (1 source) Patient encounter status 10-16-2021 Unclassified (2 sources) CONTACT W/AND (SUSP) EXPOS COVID-19; Translations: [CONTACT W/AND (SUSP) EXPOS COVID-19] Onset: 2 Viral infection (4 sources) COVID-19; Translations: [COVID-19] Onset: 1 Past or Other Problems Problem Classification Problem Date Documented Da te Episodic/Chronic Immunizations and screening for infectious disease (1 source) Encounter for immunization; Translations: [ENCOUNTER FOR IMMUNIZATION] Onset: 04-13-2021 Episodic Other lower respiratory disease (1 source) Shortness of breath; Translations: [SHORTNESS OF BREATH] Onset: 04-11-2021 Episodic Unclassified (1 source) CONTACT W/AND (SUSP) EXPOS COVID-19; Translations: [CONTACT W/AND (SUSP) EXPOS COVID-19] Onset: 01-15-2022 Results Test Name Value Interpretation Reference Range Facility XR Knee Standing AP Francois carrillo 11-29-2024 XR Knee Standing AP Bilateral EXAM: XR Knee Standing AP Bilateral HISTORY: Unilateral primary osteoarthritis, left knee COMPARISON: None. FINDINGS/IMPRESSION : 1. No acute fracture or dislocation 2. Mild degeneration of the bilateral hip joints. 3. Bilateral lower extremities from the superior aspect of the femoral heads through the tibial plateaus measuring 92 cm. 4. No acute fractures. 5. Moderate degeneration of the left knee medial compartment. Mild degeneration of the right knee medial compartment. Final Dictated by: Rogers Rowley MD Dictated DT/TM: 11/29/2024 12:06 pm Signed by: Rogers Rowley MD Signed (Electronic Signature): 11/29/2024 12:11 pm (If Report Is Signed, Electronically Signed in Other Vendor System) Normal [facility] MRI Knee Surg.Navigate or Pl an ONLY Lefton 11-28-2024 MRI Knee Surg.Navigate or Plan ONLY Left MRI OF THE LEFT KNEE WITHOUT IV CONTRAST CLINICAL HISTORY: Unilateral primary osteoarthritis, left knee COMPARISON: None TECHNIQUE: Limited MRI of the knee. Only a single T2-weighted sagittal sequence provided. CONTRAST: None FINDINGS: Bone: No fracture identified. No bone contusion. No marrow infiltration. Severe degenerative joint disease present. Small joint effusion is present with soft tissue edema surrounding the knee. Moderate Barbosa's cyst is present. Nlrv-gx-logc articulation present in the medial compartment. Joints: Normal alignment present. Medial meniscus: Meniscal degeneration is present, with generalized fraying to the meniscus, and attenuation, secondary to chronic meniscal tearing, causing autodigestion. No well-defined or acute-appearing tear. Lateral meniscus: Moderate lateral meniscus degeneration present, but no tear. Cruciate ligaments: Anterior as well as posterior cruciate ligaments remain intact. Extensor mechanism: The quadriceps mechanism, as well as patellar tendon remains intact. Articular cartilage: Advanced full-thickness grade 3/4 chondromalacia present in the medial compartment, and to a lesser degree the patellofemoral compartment. The lateral compartment cartilage demonstrates moderate grade 1/2 chondromalacia. Musculature: No muscle tear identified. No signs of denervation muscular atrophy. IMPRESSION: Severe degenerative joint disease and chondromalacia is present. Final Dictated by: Tristan Black DO Dictated DT/TM: 11/28/2024 8:17 pm Signed by: Tristan Black DO Signed (Electronic Signature): 11/28/2024 8:21 pm (If Report Is Signed, Electronically Signed in Other Vendor System) Normal [facility] 12-28 SARS-CoV-2 (COVID-19) RNA CACHORRO+probe Ql (Unsp spec) Detected Critically abnormal NOT DETECTED [facility] Comment on above: Result Comment: This test is not yet approved or cleared by the [place] FDA. When there are no FDA-approved or cleared tests available, and other criteria are met, FDA can make tests available under an emergency access mechanism called an Emergency Use Authorization (EUA). The EUA for this test is supported by the [place] of Health and Human Service's declaration that circumstances exist to justify the emergency use of in vitro diagnostics for the detection and/or diagnosis of the virus that causes COVID-19. This EUA will remain in effect for the duration of the COVID-19 declaration justifying emergency of IVDs, unless it is terminated or revoked by the FDA (after which the test may no longer be used). Performed By: #### C VDTB ####[facility] [id number] [place], [place] [address]On. Terrance Roque Outside Colonoscopyon 2021 Outside Colonoscopy [id number] D5#[id number]:127 Normal [facility] Reminderson 11-26-2021 Reminders -- From: Laura Allen LPN To: GSN - Clinical; Sent: 11/26/2021 13:42:04 EDT Show up: 10/26/2031 07:00:00 EDT Subject: colonoscopy recall Due Date/Time: 11/26/2031 07:00:00 EDT Reminder/Recall Patient is due for screening colonoscopy 11/26/2031. Normal [facility] Pre-Certification Formon Pre-Certification Form [id number] 172#1.00CD:127 [facility] Consent for Procedure/Surger yon 10-19-2021 Consent for Procedure/Surgery [id number] D1#1.00CD:127 [facility] Ambulatory Visit Summaryon 0 10-16-2021 Ambulatory Visit Summary EMILIANA HANCOCK :1965 Visit Date:10/16/2021 Ambulatory Visit Instructions Your Diagnosis Screening for malignant neoplasm of colon BMI 35.0-35.9,adult Your Care Team Attending Physician - IFEANYI SILVA, Hemanth Muhammad Primary Care Physician - Fanny SILVA, Michelle Referring Physician - Michelle Escobedo MD This Is Your Medications List Contact prescribing physician if questions or concerns lisinopril (lisinopril 40 mg Tab) Procedures Performed Rotator cuff repair (05/14/2019), Gastric bypass. Discharge Vitals Heart Rate (Peripheral) 84 Respiratory Rate 16 Blood Pressure 138/76 Height 182.9 cm Height 182.88 cm Weight 119.0 kg Weight 119 kg BMI 35.58 Medications What How Much When Instructions Unchanged lisinopril (lisinopril 40 mg Tab) 1 Tablets By Mouth Every day Contact prescribing physician if questions or concerns Allergies No Known Allergies No Known Medication Allergies Problems Ongoing - Any problem that you are currently receiving treatment for. BMI 35.0-35.9,adult Eczema GERD (gastroesophageal reflux disease) HTN (hypertension) Screening for malignant neoplasm of colon [facility] INSULINon 10-03-2021 Insulin 8.2 uIU/mL Normal 2.6-24.9 [facility] Comment on above: Performed By: #### I NSULIN #### [facility] [address] [place] [address] Dr. Terrance Roque CBC AUTO DIFFon 10-02-2021 BASO # 0.1 103/ul Normal 0.0-0.1 [facility] Comment on above: Performed By: #### C BC #### [facility] [address] [place] [address] Dr. Terrance Roque Basophils/100 WBC (Bld) 0.9 % Normal 0.2-2.0 [facility] Comment on above: Performed By: #### C BC #### [facility] [address] [place] [address] Dr. Terrance Roque EO # 0.1 103/ul Normal 0.0-0.7 [facility] Comment on above: Performed By: #### C BC #### [facility] [address] [place] [address] Dr. Terrance Roque Eosinophils/100 WBC (Bld) 1.1 % Normal 0.9-7.0 [facility] Comment on above: Performed By: #### C BC #### [facility] [address] [place] [address] Dr. Terrance Roque Erythrocyte distribution width (RBC) [Ratio] 14.7 % Normal 11.0-15.0 [facility] Comment on above: Performed By: #### C BC #### [facility] [address] [place] [address] Dr. Terrance Roque Hematocrit (Bld) [Volume fraction] 41.0 % Critically low 42.0-54.0 [facility] Comment on above: Performed By: #### C BC #### [facility] [address] [place] [address] Dr. Terrance Roque Hemoglobin (Bld) [Mass/Vol] 13.1 g/dL Critically low 14.0-18.0 [facility] Comment on above: Performed By: #### C BC #### [facility] [address] [place] [address] Dr. Terrance Roque IG # 0.01 10e3/ul Normal 0.00-0.03 [facility] Comment on above: Performed By: #### C BC #### [facility] [address] [place] [address] Dr. Terrance Roque IG % 0.2 % Normal 0.0-0.5 [facility] Comment on above: Performed By: #### C BC #### [facility] [address] [place] [address] Dr. Terrance Roque LYMPH # 1.2 103/ul Normal 1.2-3.8 [facility] Comment on above: Performed By: #### C BC #### [facility] [address] [place] [address] Dr. Terrance Roque Lymphocytes/100 WBC (Bld) 17.6 % Critically low 20.5-60.0 [facility] Comment on above: Performed By: #### C BC #### [facility] [address] [place] [address] Dr. Terrance Roque MANUAL DIFF REQ NO Normal [facility] Comment on above: Performed By: #### C BC #### [facility] [address] [place] [address] Dr. Terrance Roque MCH (RBC) [Entitic mass] 28.1 pg Normal 25.9-34.0 [facility] Comment on above: Performed By: #### C BC #### [facility] [address] [place] [address] Dr. Terrance Roque MCHC (RBC) [Mass/Vol] 32.0 g/dL Normal 29.9-35.2 [facility] Comment on above: Performed By: #### C BC #### [facility] [address] [place] [address] Dr. Terrance Roque MCV (RBC) [Entitic vol] 88.0 fL Normal 80.0-94.0 [facility] Comment on above: Performed By: #### C BC #### [facility] [address] [place] [address] Dr. Terrance Roque MONO # 0.8 103/ul Normal 0.3-0.8 [facility] Comment on above: Performed By: #### C BC #### [facility] [address] [place] [address] Dr. Terrance Roque Monocytes/100 WBC (Bld) 11.6 % Normal 1.7-12.0 [facility] Comment on above: Performed By: #### C BC #### [facility] [address] [place] [address] Dr. Terrance Roque NEUT # 4.6 103/ul Normal 1.4-6.5 [facility] Comment on above: Performed By: #### C BC #### [facility] [address] [place] [address] Dr. Terrance Roque Neutrophils/100 WBC (Bld) 68.6 % Normal 43.0-75.0 [facility] Comment on above: Performed By: #### C BC #### [facility] [address] [place] [address] Dr. Terrance Roque Platelet mean volume (Bld) [Entitic vol] 10.7 fL Normal 9.5-13.5 [facility] Comment on above: Performed By: #### C BC #### [facility] [address] [place] [address] Dr. Terrance Roque PLT 246 103/ul Normal 150-450 [facility] Comment on above: Performed By: #### C BC #### [facility] [address] [place] [address] Dr. Terrance Roque RBC 4.66 106/ul Critically low 4.70-6.10 [facility] Comment on above: Performed By: #### C BC #### [facility] [address] [place] [address] Dr. Terrance Roque WBC 6.6 103/ul Normal 4.0-11.0 [facility] Comment on above: Performed By: #### C BC #### [facility] [address] [place] [address] Dr. Terrance Roque FREE THYROXINE INDEX T7on FTI 1.78 Normal 1.30-4.50 [facility] Comment on above: Performed By: #### L IPID, URIC, TSH, T7, CMP #### [facility] [address] [place] [address] Dr. Terrance Roque T3U 33.0 % Normal 33.0-40.0 [facility] Comment on above: Performed By: #### L IPID, URIC, TSH, T7, CMP #### [facility] [address] [address] [address] Terrance Roque T4 [Mass/Vol] 5.40 ug/dL Normal 4.50-12.10 [facility] Comment on above: Performed By: #### L IPID, URIC, TSH, T7, CMP #### [facility] [address] [address] [address] Terrance Roque GLYCOHEMOGLOBIN A1Con 2021 ADA RECOMMENDATION SEE BELOW Normal [facility] [place] Comment on above: Result Comment: ADA RECOMMENDED LIMIT 4.0 - 6.0 ADA THERAPEUTIC TARGET < 7.0 ACTION SUGGESTED > 7.0 Performed By: #### A 1C #### [facility] [address] [place] [address] Dr. Terrance Roque Glucose [Mass/Vol] 120 mg/dL Normal [facility] Comment on above: Performed By: #### A 1C #### [facility] [address] [place] [address] Dr. Terrance Roque HbA1c (Bld) [Mass fraction] 5.8 % Normal 4.5-6.2 [facility] Comment on above: Performed By: #### A 1C #### [facility] [address] [place] [address] Dr. Terrance Roque LIPID PROFILEon 10-02-2021 CHOL-HDL RATIO NORM SEE BELOW Normal [facility] Comment on above: Result Comment: 3.3 - 4.4 LOW RISK 4.4 - 7.1 AVERAGE RISK 7.1 - 11.0 MODERATE RISK >11.0 HIGH RISK Performed By: #### L IPID, URIC, TSH, T7, CMP #### [facility] [address] [place] [address] Dr. Terrance Roque Cholesterol [Mass/Vol] 101 mg/dL Normal <=200 [facility] Comment on above: Performed By: #### L IPID, URIC, TSH, T7, CMP #### [facility] [address] [place] [address] Dr. Terrance Roque Cholesterol in HDL [Mass/Vol] 49 mg/dL Normal 40-60 [facility] Comment on above: Performed By: #### L IPID, URIC, TSH, T7, CMP #### [facility] [address] [address] [address] Terrance Roque Cholesterol in LDL [Mass/Vol] 45.4 mg/dL Normal [facility] Comment on above: Performed By: #### L IPID, URIC, TSH, T7, CMP #### [facility] [address] [address] [address] Terrance Roque Cholesterol.total/Ch olesterol in HDL [Mass ratio] 2.1 {ratio} Normal [facility] Comment on above: Performed By: #### L IPID, URIC, TSH, T7, CMP #### [facility] [address] [place] [address] Dr. Terrance Roque HDL NORMAL > or = 60 mg/dl - LOW CARDIOVASCULAR RISK <40 mg/dl - HIGH CARDIOVASCULAR RISK Normal [facility] Comment on above: Performed By: #### L IPID, URIC, TSH, T7, CMP #### [facility] [address] [address] [address] Terrance Roque LDL CALC NORMAL SEE BELOW Normal [facility] Comment on above: Result Comment: <100 mg/dl OPTIMAL 100 - 129 mg/dl NEAR OR ABOVE OPTIMAL 130 - 159 mg/dl BORDERLINE HIGH 160 - 189 mg/dl HIGH >190 mg/dl VERY HIGH Performed By: #### L IPID, URIC, TSH, T7, CMP #### [facility] [address] [address] [address] Terrance Roque Triglyceride [Mass/Vol] 33 mg/dL Normal <=150 [facility] Comment on above: Performed By: #### L IPID, URIC, TSH, T7, CMP #### [facility] [address] [address] [address] Terrance Roque VLDL CALC 6.6 mg/dL Normal [facility] Comment on above: Performed By: #### L IPID, URIC, TSH, T7, CMP #### [facility] [address] [place] [address] Dr. Terrance Roque PROF 14(COMP METB)on 022 Albumin [Mass/Vol] 3.5 g/dL Normal 3.4-5.0 [facility] [place] Comment on above: Performed By: #### L IPID, URIC, TSH, T7, CMP #### [facility] [address] [place] [address] Dr. Terrance Roque Albumin/Globulin [Mass ratio] 1.0 {ratio} Normal [facility] Comment on above: Performed By: #### L IPID, URIC, TSH, T7, CMP #### [facility] [address] [place] [address] Dr. Terrance Roque ALP [Catalytic activity/Vol] 112 U/L Normal 46-116 [facility] Comment on above: Performed By: #### L IPID, URIC, TSH, T7, CMP #### [facility] [address] [place] [address] Dr. Terrance Roqeu ALT [Catalytic activity/Vol] 24 U/L Normal 16-63 [facility] Comment on above: Performed By: #### L IPID, URIC, TSH, T7, CMP #### [facility] [address] [place] [address] Dr. Terrance Roque Anion gap [Moles/Vol] 11.7 mmol/L Normal [facility] Comment on above: Performed By: #### L IPID, URIC, TSH, T7, CMP #### [facility] [address] [place] [address] Dr. Terrance Roque AST [Catalytic activity/Vol] 20 U/L Normal 15-37 [facility] Comment on above: Performed By: #### L IPID, URIC, TSH, T7, CMP #### [facility] [address] [place] [address] Dr. Terrance Roque Bilirubin [Mass/Vol] 0.6 mg/dL Normal 0.2-1.0 [facility] Comment on above: Performed By: #### L IPID, URIC, TSH, T7, CMP #### [facility] [address] [place], [place] [id number] Dr. Terrance Roque Calcium [Mass/Vol] 7.7 mg/dL Critically low 8.5-10.1 [facility] e [facility] Comment on above: Performed By: #### L IPID, URIC, TSH, T7, CMP #### [facility] [address] [place] [address] Dr. Terrance Roque Chloride [Moles/Vol] 103 mmol/L Normal 98-107 [facility] Comment on above: Performed By: #### L IPID, URIC, TSH, T7, CMP #### [facility] [address] [place] [address] Dr. Terrance Roque CO2 [Moles/Vol] 27.2 mmol/L Normal 21.0-32.0 [facility] Comment on above: Performed By: #### L IPID, URIC, TSH, T7, CMP #### [facility] [address] [place] [address] Dr. Terrance Roque Creatinine [Mass/Vol] 0.64 mg/dL Critically low 0.70-1.30 [facility] Comment on above: Performed By: #### L IPID, URIC, TSH, T7, CMP #### [facility] [address] [place] [address] Dr. Terrance Roque EGFR-AF AZERBAIJANI >60 Normal >=60 [facility] Comment on above: Performed By: #### L IPID, URIC, TSH, T7, CMP #### [facility] [address] [place] [address] Dr. Terrance Roque EGFR-NON AF AZERBAIJANI >60 Normal >=60 [facility] Comment on above: Performed By: #### L IPID, URIC, TSH, T7, CMP #### [facility] [address] [place] [address] Dr. Terrance Roque Globulin (S) [Mass/Vol] 3.4 g/dL Normal [facility] Comment on above: Performed By: #### L IPID, URIC, TSH, T7, CMP #### [facility] [address] [place] [address] Dr. Terrance Roque Glucose [Mass/Vol] 96 mg/dL Normal 74-[address] [facility] Comment on above: Performed By: #### L IPID, URIC, TSH, T7, CMP #### [facility] [address] [place] [address] Dr. Terrance Roque Potassium [Moles/Vol] 3.9 mmol/L Normal 3.5-5.1 [facility] [facility] Comment on above: Performed By: #### L IPID, URIC, TSH, T7, CMP #### [facility] [address] [place] [address] Dr. Terrance Roqeu Protein [Mass/Vol] 6.9 g/dL Normal 6.4-8.[address] [facility] Comment on above: Performed By: #### L IPID, URIC, TSH, T7, CMP #### [facility] [address] [place] [address] Dr. Terrance Roque Sodium [Moles/Vol] 138 mmol/L Normal 136-[address] [facility] Comment on above: Performed By: #### L IPID, URIC, TSH, T7, CMP #### [facility] [address] [place] [address] Dr. Terrance Roque Urea nitrogen [Mass/Vol] 10.0 mg/dL Normal 7.0-18.0 [facility] Comment on above: Performed By: #### L IPID, URIC, TSH, T7, CMP #### [facility] [address] [place] [address] Dr. Terrance Roque Urea nitrogen/Creatinine [Mass ratio] 15.6 mg/mg Normal [facility] Comment on above: Performed By: #### L IPID, URIC, TSH, T7, CMP #### [facility] [address] [place] [address] Dr. Terrance Roque TSHon 10-02-2021 TSH 1.846 uIU/mL Normal 0.358-3.740 [facility] Comment on above: Performed By: #### L IPID, URIC, TSH, T7, CMP #### [facility] [address] [place] [address] Dr. Terrance Roque TSH RANGE SEE BELOW Normal [facility] Comment on above: Result Comment: <0.3 4 UIU/ml HYPERTHYROID 0.34-5.60 UIU/ml EUTHYROID >5.60 UIU/ml HYPOTHYROID Performed By: #### L IPID, URIC, TSH, T7, CMP #### [facility] [address] [address] [address] Terrance Roque URIC ACID SERUMon 10-02-2021 Urate [Mass/Vol] 4.4 mg/dL Normal 3.5-7.2 [facility] Comment on above: Performed By: #### L IPID, URIC, TSH, T7, CMP #### [facility] [address] [address] [address] Terrance Roque Physician Referralon 022 Physician Referral [phone] [id number] [id number] Normal [facility] SYMPTOMATIC COVID-19 ANTIGEN on 04-06-2021 EUA Statement SEE BELOW Normal [facility] Comment on above: Result Comment: This test has not been FDA cleared or approved, but has been authorized by the FDA under an Emergency Use Authorization (EUA) for use by authorized laboratories certified under CLIA that meet the requirements to perform moderate or high complexity testing. This test has been authorized only for the detection of proteins from SARS-CoV-2, not for any other viruses or pathogens. The emergency use of this test is authorized for the duration of the declaration that circumstances exist justifying the authorization of emergency use of in vitro diagnostic tests for detection and/or diagnosis of Covid-19 under section 564(b)(1) of the Act, 21 U.S.C. 360bbb-3(b)(1), unless the declaration is terminated or authorization is revoked sooner. Performed By: #### C VDAGS #### [facility] [address] [place] [address] Dr. Terrance Roque SARS-CoV-2 (COVID-19) RNA CACHORRO+probe Ql (Unsp spec) Positive Critically abnormal NEGATIVE [facility] Comment on above: Performed By: #### C VDAGS #### [facility] [address] [address] [address] Terrance Roque Vital Signs Date Time Vital Sign Value Performing Clinician Agustín conroy 10-16-2021 14:26-0400 Blood Pressure Location Hemanth OATESL [facility] [place] 10-16-2021 14:26-0400 Diastolic blood pressure 76 mm[Hg] Hemanth NILL [facility] [place] 10-16-2021 14:26-0400 Heart rate 84 /min Hemanth OATESL [facility] [place] 10-16-2021 14:26-0400 Respiratory rate 16 /min Hemanth NILL [facility] [place] 10-16-2021 14:26-0400 Systolic blood pressure 138 mm[Hg] Hemanth OATESL [facility] [place] Encounters Encounter Date Encounter Type Care Provider Facility Start: 12-17-2024 End: 12-17-2024 ambulatory Michelle Escobedo MD Facility:[facility] Start: 12-04-2024 End: 12-06-2024 Telephone encounter Catarina Redmond PT [facility] Comment on above: PT PO Eval (PO PT to be started no later than 12/31/24.); fu; PT Eval 12/28 Start: 11-28-2024 End: 11-28-2024 ambulatory Ayan Duffy DO Facility:[facility] Start: 01-15-2022 End: 01-15-[address] MICHELLE ESCOBEDO Facility:[facility] Start: 12-03-2021 Encounter for other preprocedural examination DR HEMANTH JIN [facility] Start: 11-25-2021 End: 11-25-[address] HEMANTH JIN Facility:[facility] Start: 11-23-2021 End: 11-24-[address] MICHELLE ESCOBEDO Facility:[facility] Start: 11-23-2021 End: 11-24-2021 Encounter for other preprocedural examination DR MICHELLE ESCOBEDO Facility:[facility] Start: 10-16-2021 End: 10-16-2021 Patient encounter procedure Hemanth Muhammad IFEANYI [facility] Start: 10-07-2021 Encounter for genera l adult medical examination without abnormal findings DR MICHELLE ESCOBEDO [facility] Start: 10-02-2021 End: 10-03-[address] MICHELLE ESCOBEDO Facility:[facility] Start: 10-02-2021 End: 10-03-2021 Encounter for general adult medical examination without abnormal findings DR MICHELLE ESCOBEDO Facility:[facility] Start: 04-07-2021 End: 04-07-[address] MICHELLE ESCOBEDO Facility:[facility] Start: 04-06-2021 End: 04-06-[address] MICHELLE ESCOBEDO Facility:[facility] Procedures Date Procedure Procedure Detail Performing Clinician Start: 10-02-[address] SIVAKUMAR ESCOBEDO Comment on above: Performed By: #### P [facility] ####[facility] [id number] [place], [place] [address]Dr. 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 Hemanth IFEANYI Bypass of stomach Hemanth BRENDA RED Plan of Treatment Date Care Activity Detail Author Start: 01-28-2025 Influenza vaccination Influenza Vaccine (#1) [facility] Start: 01-25-2025 End: 01-25-2025 ambulatory 01/25/2025 12:00 PM EDT Treatment [facility] [address] [place] [address] Stephen Rubio, [employer] [facility] Start: 01-23-2025 End: 01-23-2025 ambulatory 01/23/2025 12:00 PM EDT Treatment [facility] [address] [place] [id number] Stephen Rubio [employer] [facility] Start: 01-21-2025 End: 01-21-2025 ambulatory 01/21/2025 12:00 PM EDT Treatment [facility] [address] [place] [address] Catarina Redmond, PT [facility] Start: 01-18-2025 End: 01-18-2025 ambulatory 01/18/2025 12:00 PM EDT Treatment [facility] [address] [place] [address] Stephen Rubio, [employer] [facility] Start: 01-16-2025 End: 01-16-2025 ambulatory 01/16/2025 12:00 PM EDT Treatment [facility] [address] [place] [address] Stephen Rubio, [employer] [facility] Start: 01-14-2025 End: 01-14-2025 ambulatory 01/14/2025 12:00 PM EDT Treatment [facility] [address] [place] [address] Stephen Rubio, [employer] [facility] Start: 01-11-2025 End: 01-11-2025 ambulatory 01/11/2025 12:00 PM EDT Treatment [facility] [address] [place] [address] Stephen Rubio, [employer] [facility] Start: 01-09-2025 End: 01-09-2025 ambulatory 01/09/2025 12:00 PM EDT Treatment [facility] [address] [place] [address] Stephen Rubio, [employer] [facility] Start: 01-07-2025 End: 01-07-2025 ambulatory 01/07/2025 12:00 PM EDT Treatment [facility] [address] [place] [address] Catarina Redmond, PT [facility] Start: 01-04-2025 End: 01-04-2025 ambulatory 01/04/2025 12:00 PM EDT Treatment [facility] [address] [place] [address] Stephen Rubio, [employer] [facility] Start: 01-02-2025 End: 01-02-2025 ambulatory 01/02/2025 12:00 PM EDT Treatment [facility] [address] [place] [address] Stephen Rubio, [employer] [facility] Start: 12-31-2024 End: 12-31-2024 ambulatory 12/31/2024 12:00 PM EDT Treatment [facility] [address] [place] [address] Stephen Rubio, [employer] [facility] Start: 12-28-2024 End: 12-28-2024 ambulatory 12/28/2024 12:30 PM EDT Evaluation [facility] [address] [facility] [address] [place] [address] Catarina Redmond, PT [facility] Start: 12-27-2024 ambulatory Ambulatory Facility:[facility] Start: 1965 Screening for malignant neoplasm of colon [facility] Payers Date Payer Category Payer Unknown 2018 [facility] er [id number] 1965 Unknown [id number] 1963 Unknown [id number] 1963 Unknown [id number] 1963 Unknown [id number] 1963 Unknown [id number] 1963 Unknown [id number] .593 1963 Unknown [id number] .196 1963 Unknown [id number] .196 1965 Unknown [id number] .196 1959 Unknown [id number] Social History Date Type Detail Facility Start: 10-16-2021 Tobacco smoking status Never smoked tobacco (finding) [facility] Tobacco smoking status Never [facility] [place] Sex Assigned At Male [facility] Tobacco smoking status KYIS Tobacco smoking consumption unknown [facility] Start: 1965 Sex assigned at Not on file [facility] Telephone encounter Note 12-04-2024 Telephone Encounter - Ivet Browne - 12/04/2024 4:09 PM EDT Note Date & Type Note Facility 12-04-2024 Telephone encount er Note Tried to contact to offer PO PT for L TKA on 12/27; schedule PO no later that 12/31. Aggressive ROM / gentle strengthening. LM requesting a call back at earliest convenience to schedule out. [facility] Note 12-04-2024 Telephone Encounter - Ivet Browne - 12/04/2024 4:09 PM EDT Note Date & Type Note Facility 12-04-2024 Miscellaneous Notes Formattin g of this note might be different from the original. Tried to contact to offer PO PT for L TKA on 12/27; schedule PO no later that 12/31. Aggressive ROM / gentle strengthening. LM requesting a call back at earliest convenience to schedule out. documented in this encounter [facility] Clinical Note 11-25-2021 Note Date & Type Note Facility 11-25-2021 Note OPERATIVE NOTE OPERATION DATE: 11/25/2021 PREOPERATIVE DIAGNOSIS: Colorectal screening. POSTOPERATIVE DIAGNOSIS: Normal colonoscopy to cecum. PROCEDURE: Colonoscopy to cecum. SURGEON: Hemanth Jin M.D. ANESTHESIA: Monitored anesthesia care. ESTIMATED BLOOD LOSS: Zero. INDICATIONS AND CONSENT: Patient is a 56-year-old male presents for colorectal screening. Indications, risks, benefits, alternatives of proceeding with colonoscopy were explained extensively to the patient, including the risks of bleeding, colon perforation or anesthetic complications. All of his questions were answered. Informed consent was obtained. PROCEDURE: Patient was brought to the operating room, placed in the left lateral decubitus position. Monitored anesthesia care was provided. Rectal exam was performed which showed no masses or blood. The scope was inserted into the anal canal. Under direct visualization was advanced. With the aid of abdominal compression, it was advanced to the cecum where cecal markings were clearly identified. Upon withdrawal of the scope, mucosal surfaces were carefully examined. There were no mass lesions or polyps. No inflammatory changes or ulcerations. No significant diverticulosis. The scope was retroflexed in the anal canal. There was noted to be some prominent rectal veins. There was also some redundancy of the colon. Scope was then withdrawn. Patient tolerated procedure well. Follow up colonoscopy for screening should be in 10 years. CC: Patient's family physician IFC Signed and Approved by: DR HEMANTH JIN . 11/27/2021 16:25:00 [facility] Note 10-16-2021 Note Date & Type Note Facility 10-16-2021 Note Chief Complaint consultation for screening colonoscopy [facility] Staff 56 year old male presents on consultation from Dr. Escobedo for screening colonoscopy. Denies abdominal or rectal pain. No rectal bleeding. Has chronic diarrhea post gastric bypass. Denies nausea or vomiting. No unexplained weight loss. Never had colonoscopy in the past. No known family history of colon cancer. History of Present Illness 56 yo male with h/o htn, referred for colorectal screening; denies change in bms or blood in stools; no abdominal complaints; denies asa or NSAID use, no SBE prophylaxis; abdominal operations significant for gastric bypass in 2013; no fmhx of GI malignancy or IBD; no tobacco use. Review of Systems PHQ Score Initial Depression Screen Score: 0 Physical Exam Vitals & Measurements HR: 84(Peripheral) RR: 16 BP: 138/76 HT: 182.9 cm HT: 182.88 cm WT: 119.0 kg WT: 119 kg BMI: 35.58 HEENT: normal conjunctiva, sclera clear, no scleral icterus, EOM intact, PERRLA, oral mucosa moist without lesions. Neck: trachea midline, no mass, symmetric, no thyromegaly or nodules, no adenopathy Respiratory: lungs CTA, respirations non labored. Cardiovascular: regular rate and rhythm, no murmur, no pedal edema or varicosities. Gastrointestinal: obese, soft, non distended, no tenderness, no masses, no palpable hernias, diastasis recti no, no hepatosplenomegaly; normal bs Lymphatic: no cervical adenopathy, no axillary adenopathy, no inguinal adenopathy. Musculoskeletal: normal gait, digits and nails without infection, nodes, cyanosis, clubbing. Skin: no rashes, no lesions, no ulcers, no subcutaneous nodules, induration. multiple tattoos Psychiatric/Neuro: oriented to time, place, person, judgement normal, affect appropriate for age, insight intact, no focal deficits. Tests: review of old records completed, Discussed surgical options, risks, and possible complications with patient. Assessment/Plan 1. Screening for malignant neoplasm of colon (Z12.11: Encounter for screening for malignant neoplasm of colon) plan colonoscopy with anesthesia, informed consent obtained. 2. BMI 35.0-35.9,adult (Z68.35: Body mass index [BMI] 35.0-35.9, adult) continue diet and exercise. Follow-up No qualifying data available Problem List/Past Medical History Ongoing BMI 35.0-35.9,adult Eczema GERD (gastroesophageal reflux disease) HTN (hypertension) Screening for malignant neoplasm of colon Historical No qualifying data Procedure/Surgical History Rotator cuff repair (05/14/2019), Gastric bypass. Medications lisinopril 40 mg Tab, 40 mg= 1 tab(s), Oral, Daily Allergies No Known Allergies No Known Medication Allergies Social History Alcohol - Denies Alcohol Use, 10/16/2021 Substance Abuse - Denies Substance Abuse, 10/16/2021 Tobacco Never (less than 100 in lifetime) Tobacco Use:. Never Smokeless Tobacco Use:., 10/16/2021 Family History Esophageal cancer: Father. Heart disease: Brother. Heart failure: Mother. Malignant tumor: Sister. Primary malignant neoplasm of lung: Sister. [facility] Comment on above: Result Comment: Elec tronically Signed By: IFEANYI SILVA, Hemanth Seaman\Date and Time Signed: 10/16/21 14:55 EDT Evaluation + Plan note Note Date & Type Note Facility Evaluation + Plan note No data available for this section [facility] [place] [facility] Discharge instructions Note Date & Type Note Facility Hospital Discharge instructions No data available for this section [facility] [place] Summary Purpose Family History No Family History Records FoundNo Family History Records FoundNo Family History Records Found Advance Directives No Advanced Directives Records FoundNo Advanced Directives Records FoundNo Advanced Directives Records Found Additional Source Comments (unrecognized sect ion and content) No Status Records FoundNo Status Records FoundNo Status Records Found INFORMATION SOURCE (unrecogn ized section and content) DATE CREATED AUTHOR 12/09/2021 [facility] DATE CREATED AUTHOR AUTHOR'S ORGANIZ ATION 01/21/2022 [facility] DATE CREATED AUTHOR AUTHOR'S ORGANIZ ATION 12/19/2024 [facility] Reason for Visit (unrecogniz ed section and content) Reason Onset Date Comments PT PO Eval 11/28/2024 PO PT to be star riana no later than 12/31/24. fu 12/04/2024 PT Eval 12/2812/06/2024 FOR RECORDS PERTAINING TO PATIENTS WHO ARE OR HAVE BEEN ENROLLED IN A CHEMICAL DEPENDENCY/SUBSTANCEABUSE PROGRAM, SOME INFORMATION MAY BE OMITTED. This clinical summary was aggregated from multiple sources. Caution should be exercised in using it in the provision of clinical care. This summary normalizes information from multiple sources, and as a consequence, information in this document may materially change the coding, format and clinical context of patient data. In addition, data may be omitted in some cases. CLINICAL DECISIONS SHOULD BE BASED ON THE PRIMARY CLINICAL RECORDS. [facility] [employer] [facility]. provides no warranty or guarantee of the accuracy or completeness of information in this document.
[2024-12-20 08:39] LABS: Hematocrit 36.2 % (42.0-54.0); Hemoglobin 11.3 g/dL (14.0-18.0); Immature Granulocytes Abs Auto 0.02 10^3/uL (0.00-0.03); Immature Granulocytes Pct Auto 0.2 % (0.0-0.5); Lymphocytes Absolute Auto 1.4 10^3/uL (1.2-3.8); Mean Corpuscular HGB Conc 31.2 g/dL (29.9-35.2); Mean Corpuscular Hemoglobin 24.2 pg (25.9-34.0); Mean Corpuscular Volume 77.5 fL (80.0-94.0); Platelet Count 235 10^3/uL (150-450); Red Blood Count 4.67 10^6/uL (4.70-6.10); White Blood Count 8.2 10^3/uL (4.0-11.0)
[2024-12-20 14:30] LABS: Alanine Aminotransferase 18 U/L (16-63); Albumin Globulin Ratio 1.1; Albumin Level 3.5 g/dL (3.4-5.0); Alkaline Phosphatase 116 U/L (46-116); Anion Gap 13.8; Aspartate Amino Transferase 17 U/L (15-37); Blood Urea Nitrogen 19.0 mg/dL (7.0-18.0); Calcium 8.1 mg/dL (8.5-10.1); Carbon Dioxide 27.3 mmol/L (21.0-32.0); Chloride 105 mmol/L (98-107); Estimated GFR (African America >60 (>=60 mL/min/1.73m^2); Estimated GFR (Non-African Ame >60 (>=60 mL/min/1.73m^2); Globulin 3.2 g/dL; Glucose 96 mg/dL (74-106); Potassium 4.1 mmol/L (3.5-5.1); Sodium 142 mmol/L (136-145); Total Protein 6.7 g/dL (6.4-8.2)
== END 2024-12-20 08:17 | disposition home or self-care (01) ==
LOC: LAB 08:18
PROVIDERS: PCP Family Medicine; Visit Provider Student in an Organized Health Care Education/Training Program
DX: Z01.812 Encounter for preprocedural laboratory examination (principal); Z96.652 Presence of left artificial knee joint; M17.12 Unilateral primary osteoarthritis, left knee
CPT/HCPCS: 36415; 80053; 85025; 85652; 86140